=== PATIENT | female | born 1940 | race Caucasian/White ===

== ENCOUNTER 2017-12-10 10:08 | Inpatient (IN) | payer MEDICARE, OTHER ==
[~2017-12-10] VITALS: Ht 160 cm; Wt 79.4 kg
[2017-12-10 12:18] VITALS: BP 109/48
[2017-12-10] MEDS ORDERED: OXYC30TA PO (12:41)
[2017-12-10] MEDS ORDERED: INSU100I17 SQ (13:37)
[2017-12-10] MEDS ORDERED: CARI350T PO (13:37)
[2017-12-10] MEDS ORDERED: SPIR25TA PO (13:37)
[2017-12-10] MEDS ORDERED: ALPR0.25 PO (13:37)
[2017-12-10] MEDS ORDERED: AMIO200T2 PO (13:37)
[2017-12-10] MEDS ORDERED: OXYC80TA22 PO (13:37)
[2017-12-10] MEDS ORDERED: LACT1CAP21 PO (13:37)
[2017-12-10] MEDS ORDERED: DAPT500V7 IV (13:37)
[2017-12-10] MEDS ORDERED: SITA50TA PO (13:37)
[2017-12-10] MEDS ORDERED: ONDA4TAB12 PO (13:37)
[2017-12-10] MEDS ORDERED: METO25TA2 PO (13:37)
[2017-12-10] MEDS ORDERED: DIGO125T PO (13:37)
[2017-12-10] MEDS ORDERED: ASPI-612 PO (13:37)
[2017-12-10] MEDS ORDERED: LOSA25TA PO (13:37)
[2017-12-10] MEDS ORDERED: ATOR40TA PO (13:37)
[2017-12-10] MEDS ORDERED: LEVO75TA5 PO (13:37)
[2017-12-10] MEDS ORDERED: OXYC15TA PO (13:37)
[2017-12-10] MEDS ORDERED: POTA10TA10 PO ×2 (13:37)
[2017-12-10] MEDS ORDERED: IPRA3AMP NEB (13:37)
[2017-12-10] MEDS ORDERED: FURO80TA72 PO (13:37)
[2017-12-10] MEDS ORDERED: INSU100I27 SQ (13:37)
[2017-12-10] MEDS: oxyCODONE IR 5 MG TABLET PO PRN ×2 (13:53→20:37)
[2017-12-10] MEDS ORDERED: IPRATRPIUM/ALBUTEROL 0.5/2.5MG 3 ML NEBU. NEB PRN (18:45)
[2017-12-10] MEDS ORDERED: OXYCODONE HCL PO PRN (18:45)
[2017-12-10] MEDS ORDERED: ONDANSETRON ODT 4 MG TAB.RAPDIS PO PRN (18:45)
--- NOTE | 2017-12-10 19:18 | HP ---
ADMIT DATE: 12/10/2017 HISTORY OF PRESENT ILLNESS: The patient is a 77-year-old female patient with history of chronic back pain. Apparently, she rolled on her side in bed and she felt something catching and causing back pain to increase. At that time, she denied any lower extremity weakness, loss of bowel or bladder. She denied any fever or chills. Denied any significant weight change. Her lumbar spine MRI without contrast showed an area involving the L3-L4 concerning for diskitis. She apparently underwent fluoroscopically guided percutaneous disk biopsy on 12/01/2017, which grew methicillin-resistant Staphylococcus epidermidis, and she was started at that time on IV. She had a PICC line and was started on daptomycin and was basically transferred to a swing bed to continue with IV antibiotic, pain management and to start the process of physical and occupational therapy. PAST MEDICAL HISTORY: Significant for congestive heart failure secondary to ischemic cardiomyopathy, atrial fibrillation, coronary artery disease, hypertension, hyperlipidemia, chronic obstructive pulmonary disease, type 2 diabetes mellitus. PAST SURGICAL HISTORY: Significant for coronary artery bypass graft, left total hip arthroplasty, remote left nephrectomy and thumb amputation. FAMILY HISTORY: Positive for hypertension. SOCIAL HISTORY: She lives at home with her girlfriend. She smokes half-a-pack a day. Does not drink alcohol, used to be a hairdresser. ALLERGIES: She has no known drug allergies. MEDICATIONS: She is currently on following medications: She was on daptomycin ____ that was switched to Zyvox 600 mg IV twice a day. She is on DuoNeb 0.5-2.5 mg 3 mL by nebulizer 4 times a day, Soma 350 mg 4 times a day, amiodarone 200 mg daily, digoxin 125 mcg and she takes [id number]-p-zrhthe daily, atorvastatin calcium 40 mg at bedtime, metoprolol succinate 25 mg daily, losartan potassium for Cozaar 25 mg once a day, spironolactone 25 mg daily, aspirin 81 mg once a day, OxyContin 80 mg twice a day, oxycodone 15 mg immediate release 2 tablets 4 times a day. She is also on alprazolam 0.25 mg every 8 hours, potassium chloride 20 mEq daily as well as 40 mEq, furosemide 80 mg twice a day, Zofran for ondansetron ODT 4 mg every 6 hours, lactobacillus rhamnosus 1 capsule daily, sitagliptin phosphate for Januvia 50 mg once a day, NovoLog insulin 4 units subcutaneously before meals, Levemir 24 units at bedtime, levothyroxine sodium 75 mcg once a day. REVIEW OF SYSTEMS: As per history of present illness. PHYSICAL EXAMINATION GENERAL: When I saw her this afternoon, she was resting slightly propped up in bed, no apparent respiratory distress, pale, but no jaundice, cyanosis or thyromegaly. No jugular venous distention. No limb edema. VITAL SIGNS: Her heart rate was 72, blood pressure was 109/48, temperature was 97.5, respiratory rate 20, and oxygen saturation was 95% on room air. HEENT: Showed normocephalic, atraumatic. NECK: Supple. HEART: Showed normal first and second heart sounds. No gallop, rub or murmur. CHEST: Showed central trachea, equally reduced expansion, reduced air entry, vesical sounds. No crepitation or rhonchi. ABDOMEN: Slight distended, soft, nontender. No guarding or rigidity. No organomegaly. All hernial orifices intact. Bowel sounds normal. NEUROLOGIC: She is awake, alert, responding appropriately. Cranial nerves intact. She moves extremities without difficulty, although she is having severe back pain and in fact she has refused to participate with physical therapy this afternoon stating that she wanted to take it slowly. IMPRESSION: In summary, this is a 77-year-old with chronic back pain with acute component, status post L3-L4 disk biopsy on 12/01/2017, with growth of methicillin-resistant Staphylococcus epidermidis, acute on chronic back pain, chronic kidney disease, history of remote left nephrectomy, type 2 diabetes, congestive heart failure, hypertension, hypothyroidism. PLAN: Her daptomycin was switched to Zyvox 600 mg IV twice a day. Continue with pain management. Continue to monitor her lab work. Continue with physical and occupational therapy. We will obviously keep in touch with Dr. Guillermo, the infectious disease specialist, as he is following her for her infection. ROYAL SMITH MD DR: CHARLY/juan JOB#: [id number] / [id number]
[2017-12-10] MEDS: ATORVASTATIN CALCIUM 20 MG TABLET PO SCH (20:23)
[2017-12-10] MEDS: LACTOBACILLUS RHAMNOSUS GG 1 CAPSULE. PO SCH (20:23)
[2017-12-10] MEDS: oxyCODONE ER 40 MG TAB.ER.12H PO SCH (20:23)
[2017-12-10] MEDS: INSULIN DETEMIR 300 UNITS/3 ML INSULN.PEN. SQ SCH (20:33)
[2017-12-10] MEDS: CARISOPRODOL 350 MG TABLET PO PRN (23:05)
[2017-12-11] MEDS: oxyCODONE IR 5 MG TABLET PO PRN ×3 (04:59→18:28)
[2017-12-11] MEDS: LEVOTHYROXINE 75 MCG TABLET PO SCH (05:31)
[2017-12-11 06:02] VITALS: BP 133/80
[2017-12-11 06:23] LABS: BASO % 1 % (0-3); EOS # 0.1 x10^3/uL (0.0-0.7); EOS % 2 % (0-3); HEMATOCRIT 36.3 % (36.0-47.0); LYMPH # 1.1 x10^3/uL (1.0-4.8); LYMPH % 20 % (24-48); MEAN CORPUSCULAR HEMOGLOBIN 33 pg (25-35); MEAN CORPUSCULAR HGB CONC 33 g/dL (31-37); MEAN CORPUSCULAR VOLUME 98 fL (79-100); MONO # 0.5 x10^3/uL (0.0-1.1); MONO % 8 % (0-9); NEUT % 70 % (31-73); PLATELET COUNT 103 x10^3/uL (140-400); RED BLOOD COUNT 3.69 x10^6/uL (3.50-5.40); RED CELL DISTRIBUTION WIDTH 15.7 % (11.5-14.5); WHITE BLOOD COUNT 5.7 x10^3/uL (4.0-11.0)
[2017-12-11 06:56] LABS: ALBUMIN 1.5 g/dL (3.4-5.0); ALBUMIN/GLOBULIN RATIO 0.3 (1.0-1.7); CALCIUM 7.9 mg/dL (8.5-10.1); CREATININE 1.3 mg/dL (0.6-1.0); GFR 39.7; TOTAL BILIRUBIN 1.6 mg/dL (0.2-1.0); TOTAL PROTEIN 6.3 g/dL (6.4-8.2)
[2017-12-11 06:57] LABS: POTASSIUM 4.4 mmol/L (3.5-5.1)
[2017-12-11 07:28] LABS: SEDIMENTATION RATE 56 (0-25)
[2017-12-11] MEDS: INSULIN ASPART 300 UNITS/3 ML INSULN.PEN SQ SCH ×3 (07:30→17:59)
[2017-12-11] MEDS: ASPIRIN ENTERIC COATED 81 MG TABLET.DR. PO SCH (09:15)
[2017-12-11] MEDS: SPIRONOLACTONE 25 MG TABLET PO SCH (09:15)
[2017-12-11] MEDS: POTASSIUM CHLORIDE 20 MEQ TABLET.ER. PO SCH ×2 (09:15→17:53)
[2017-12-11] MEDS: LOSARTAN 25 MG TABLET. PO SCH (09:16)
[2017-12-11] MEDS: LACTOBACILLUS RHAMNOSUS GG 1 CAPSULE. PO SCH ×2 (09:16→21:03)
[2017-12-11] MEDS: AMIODARONE HCL 200 MG TABLET PO SCH (09:16)
[2017-12-11] MEDS: FUROSEMIDE 80 MG TABLET PO SCH ×2 (09:17→17:53)
[2017-12-11] MEDS: DIGOXIN 125 MCG TABLET PO SCH (09:17)
[2017-12-11] MEDS: oxyCODONE ER 40 MG TAB.ER.12H PO SCH ×2 (09:18→21:03)
[2017-12-11] MEDS: METOPROLOL SUCC 24HR ER 25 MG TAB.ER.24H. PO SCH (09:19)
[2017-12-11] MEDS: LINAGLIPTIN 5 MG TABLET PO SCH (09:19)
[2017-12-11 18:29] VITALS: BP 103/57
[2017-12-11] MEDS: ATORVASTATIN CALCIUM 20 MG TABLET PO SCH (21:03)
[2017-12-11] MEDS: INSULIN DETEMIR 300 UNITS/3 ML INSULN.PEN. SQ SCH (21:05)
[2017-12-12] MEDS: oxyCODONE IR 5 MG TABLET PO PRN ×3 (00:39→13:55)
[2017-12-12 05:48] VITALS: BP 102/56
[2017-12-12] MEDS: LEVOTHYROXINE 75 MCG TABLET PO SCH (06:41)
[2017-12-12] MEDS: POTASSIUM CHLORIDE 20 MEQ TABLET.ER. PO SCH ×2 (07:44→16:00)
[2017-12-12] MEDS: INSULIN ASPART 300 UNITS/3 ML INSULN.PEN SQ SCH ×3 (08:09→17:35)
[2017-12-12] MEDS: LOSARTAN 25 MG TABLET. PO SCH (09:00)
[2017-12-12] MEDS: SPIRONOLACTONE 25 MG TABLET PO SCH (09:16)
[2017-12-12] MEDS: ASPIRIN ENTERIC COATED 81 MG TABLET.DR. PO SCH (09:17)
[2017-12-12] MEDS: DIGOXIN 125 MCG TABLET PO SCH (09:18)
[2017-12-12] MEDS: AMIODARONE HCL 200 MG TABLET PO SCH (09:18)
[2017-12-12] MEDS: LINAGLIPTIN 5 MG TABLET PO SCH (09:19)
[2017-12-12] MEDS: LACTOBACILLUS RHAMNOSUS GG 1 CAPSULE. PO SCH ×2 (09:19→20:47)
[2017-12-12] MEDS: oxyCODONE ER 40 MG TAB.ER.12H PO SCH ×2 (09:20→20:47)
[2017-12-12] MEDS: FUROSEMIDE 80 MG TABLET PO SCH ×2 (09:20→16:00)
[2017-12-12 11:14] VITALS: BP 95/58
[2017-12-12] MEDS: METOPROLOL SUCC 24HR ER 25 MG TAB.ER.24H. PO SCH (15:54)
[2017-12-12 15:56] VITALS: BP 119/76
[2017-12-12 18:15] VITALS: BP 116/63
[2017-12-12] MEDS: ATORVASTATIN CALCIUM 20 MG TABLET PO SCH (20:47)
[2017-12-12] MEDS: INSULIN DETEMIR 300 UNITS/3 ML INSULN.PEN. SQ SCH (21:19)
[2017-12-13] MEDS: ALPRAZolam 0.25 MG TABLET PO PRN ×2 (00:42→01:27)
[2017-12-13] MEDS: oxyCODONE IR 5 MG TABLET PO PRN ×5 (00:43→21:52)
[2017-12-13 06:09] VITALS: BP 135/79
[2017-12-13 07:05] LABS: BASO % 1 % (0-3); EOS # 0.1 x10^3/uL (0.0-0.7); EOS % 2 % (0-3); HEMATOCRIT 36.9 % (36.0-47.0); HEMOGLOBIN 12.4 g/dL (12.0-15.5); LYMPH # 1.4 x10^3/uL (1.0-4.8); LYMPH % 21 % (24-48); MEAN CORPUSCULAR HEMOGLOBIN 33 pg (25-35); MEAN CORPUSCULAR HGB CONC 34 g/dL (31-37); MEAN CORPUSCULAR VOLUME 98 fL (79-100); MONO # 0.5 x10^3/uL (0.0-1.1); MONO % 8 % (0-9); NEUT # 4.4 x10^3uL (1.8-7.7); NEUT % 68 % (31-73); PLATELET COUNT 102 x10^3/uL (140-400); RED BLOOD COUNT 3.79 x10^6/uL (3.50-5.40); RED CELL DISTRIBUTION WIDTH 16.1 % (11.5-14.5); WHITE BLOOD COUNT 6.5 x10^3/uL (4.0-11.0)
[2017-12-13] MEDS: INSULIN ASPART 300 UNITS/3 ML INSULN.PEN SQ SCH ×3 (07:30→16:30)
[2017-12-13] MEDS: LEVOTHYROXINE 75 MCG TABLET PO SCH (08:11)
[2017-12-13] MEDS: POTASSIUM CHLORIDE 20 MEQ TABLET.ER. PO SCH ×2 (08:11→17:54)
[2017-12-13] MEDS: ASPIRIN ENTERIC COATED 81 MG TABLET.DR. PO SCH (09:32)
[2017-12-13] MEDS: SPIRONOLACTONE 25 MG TABLET PO SCH (09:32)
[2017-12-13] MEDS: LACTOBACILLUS RHAMNOSUS GG 1 CAPSULE. PO SCH ×2 (09:34→20:40)
[2017-12-13] MEDS: AMIODARONE HCL 200 MG TABLET PO SCH (09:34)
[2017-12-13] MEDS: LOSARTAN 25 MG TABLET. PO SCH (09:34)
[2017-12-13] MEDS: FUROSEMIDE 80 MG TABLET PO SCH ×2 (09:36→17:54)
[2017-12-13] MEDS: DIGOXIN 125 MCG TABLET PO SCH (09:36)
[2017-12-13] MEDS: oxyCODONE ER 40 MG TAB.ER.12H PO SCH ×2 (09:37→20:40)
[2017-12-13] MEDS: LINAGLIPTIN 5 MG TABLET PO SCH (09:38)
[2017-12-13] MEDS: METOPROLOL SUCC 24HR ER 25 MG TAB.ER.24H. PO SCH (09:38)
[2017-12-13] MEDS ORDERED: fentaNYL 12MCG/HR 1 PATCH PATCH TD SCH (17:15)
[2017-12-13 19:04] VITALS: BP 105/72
[2017-12-13] MEDS: ATORVASTATIN CALCIUM 20 MG TABLET PO SCH (20:41)
[2017-12-13] MEDS: INSULIN DETEMIR 300 UNITS/3 ML INSULN.PEN. SQ SCH (20:52)
[2017-12-14] VITALS (8 sets, daily range): BP systolic 82–118; BP diastolic 44–70
[2017-12-14] MEDS: ALPRAZolam 0.25 MG TABLET PO PRN ×2 (01:31→11:49)
[2017-12-14] MEDS: LEVOTHYROXINE 75 MCG TABLET PO SCH ×2 (06:06→08:42)
[2017-12-14] MEDS: oxyCODONE IR 5 MG TABLET PO PRN ×2 (06:07→17:07)
[2017-12-14] MEDS: INSULIN ASPART 300 UNITS/3 ML INSULN.PEN SQ SCH ×3 (07:55→16:30)
[2017-12-14] MEDS: POTASSIUM CHLORIDE 20 MEQ TABLET.ER. PO SCH ×3 (08:39→16:39)
[2017-12-14] MEDS: ASPIRIN ENTERIC COATED 81 MG TABLET.DR. PO SCH (08:39)
[2017-12-14] MEDS: LACTOBACILLUS RHAMNOSUS GG 1 CAPSULE. PO SCH ×2 (08:40→20:34)
[2017-12-14] MEDS: FUROSEMIDE 80 MG TABLET PO SCH ×2 (08:40→16:00)
[2017-12-14] MEDS: SPIRONOLACTONE 25 MG TABLET PO SCH (08:40)
[2017-12-14] MEDS: AMIODARONE HCL 200 MG TABLET PO SCH (08:40)
[2017-12-14] MEDS: DIGOXIN 125 MCG TABLET PO SCH (08:42)
[2017-12-14] MEDS: LOSARTAN 25 MG TABLET. PO SCH (08:43)
[2017-12-14] MEDS: oxyCODONE ER 40 MG TAB.ER.12H PO SCH ×2 (08:43→20:35)
[2017-12-14] MEDS: LINAGLIPTIN 5 MG TABLET PO SCH (08:45)
[2017-12-14] MEDS: METOPROLOL SUCC 24HR ER 25 MG TAB.ER.24H. PO SCH (09:00)
[2017-12-14] MEDS ORDERED: IV NORMAL SALINE 500ML 500 ML IV ONE (15:30)
[2017-12-14] MEDS ORDERED: LIDOCAINE (700MG/PATCH) PATCH. TD SCH (17:15)
[2017-12-14] MEDS: ATORVASTATIN CALCIUM 20 MG TABLET PO SCH (20:34)
[2017-12-14] MEDS: INSULIN DETEMIR 300 UNITS/3 ML INSULN.PEN. SQ SCH (21:16)
--- NOTE | 2017-12-14 23:06 | PN ---
DATE: 12/14/2017 SUBJECTIVE: The patient continued to complain of severe intractable pain and we decided yesterday to add fentanyl patch at a smaller dose of 12 mcg as she is on Zyvox with interaction after discussion with the pharmacist and unfortunately this morning, the patient's blood pressure dropped down to around 80 systolic, and therefore, a decision was made to discontinue the fentanyl patch. When I saw her this afternoon, she was resting slightly propped up in her recliner in no apparent distress. She was actually sleepy, but arousable, continued to complain of back pain that is worse by movement. She apparently was managed to walk few feet today. PHYSICAL EXAMINATION: GENERAL: When I examined her, she was pale, not jaundiced, cyanosis or thyromegaly. No jugular venous distension. No lower limb edema. VITAL SIGNS: Her heart rate was 75, blood pressure was 103/48, temperature was 97.5, respiratory rate was 18, and oxygen saturation was 100% on 2 liters of oxygen by nasal cannula. HEAD, EYES, EARS, NOSE AND THROAT: Showed normocephalic, atraumatic. NECK: Supple. HEART: Showed normal first and second heart sounds with no gallop, rub or murmur. CHEST: Clear to auscultation. No crepitation or rhonchi. ABDOMEN: Distended, soft, nontender. No guarding or rigidity. No organomegaly. Hernial orifice intact. Bowel sounds normal. NEUROLOGIC: She was sleepy but arousable. Cranial nerves intact. She moves extremities without difficulty, although she continued to have severe pain that is preventing her from able to walk. Her intake over the last 24 hours was 1618. No output was recorded. LABORATORY DATA: As of yesterday, which showed a white cell count of 6500, hemoglobin 12.4, hematocrit 36.9, MCV was 98 and platelet count 202,000. Her chemistry showed that her serum sodium was 139, potassium 4.4, chloride 109, bicarbonate 24, anion gap of 6, BUN 28, creatinine 1.3, estimated GFR was 40 mL per minute. Her glucose was 122. Her calcium was 7.9. Total bilirubin, AST, ALT, alkaline phosphatase were all elevated. Total protein was 6.3, albumin 1.5, and TSH was 2.25. ASSESSMENT: Intractable low back pain. Apparently fentanyl patch was not helpful and that caused severe marked hypotension and therefore we have discontinued that. She has also impaired liver enzymes. My plan is to start her on a Lidoderm patch and basically schedule them in the morning before the physical therapy. 1. Other issues, obviously she has L3-L4 diskitis for which she is on IV antibiotic in the form of Zyvox for methicillin resistant Staphylococcus epidermidis. 2. Acute on chronic back pain. 3. Chronic kidney disease. 4. History of remote left nephrectomy. 5. Type 2 diabetes mellitus. 6. Congestive heart failure. 7. Hypertension. 8. Hypothyroidism. 9. Impaired kidney function. PLAN: My plan is to repeat her labs tomorrow and decide further management accordingly. ROYAL SMITH MD DR: CHARLY/juan JOB#: [id number] / [id number]
[2017-12-15] MEDS: oxyCODONE IR 5 MG TABLET PO PRN ×4 (01:01→21:08)
[2017-12-15 01:02] VITALS: BP 103/67
[2017-12-15 05:50] VITALS: BP 91/59
[2017-12-15 06:21] LABS: ALBUMIN 1.4 g/dL (3.4-5.0); ALBUMIN/GLOBULIN RATIO 0.3 (1.0-1.7); CALCIUM 7.4 mg/dL (8.5-10.1); CREATININE 1.8 mg/dL (0.6-1.0); GFR 27.3; POTASSIUM 5.1 mmol/L (3.5-5.1); TOTAL BILIRUBIN 0.7 mg/dL (0.2-1.0)
[2017-12-15 06:23] VITALS: BP 128/77
[2017-12-15] MEDS: INSULIN ASPART 300 UNITS/3 ML INSULN.PEN SQ SCH ×3 (07:30→16:30)
[2017-12-15] MEDS: oxyCODONE ER 40 MG TAB.ER.12H PO SCH ×2 (08:01→20:13)
[2017-12-15] MEDS: SPIRONOLACTONE 25 MG TABLET PO SCH (08:02)
[2017-12-15] MEDS: FUROSEMIDE 80 MG TABLET PO SCH ×3 (08:02→15:59)
[2017-12-15] MEDS: LACTOBACILLUS RHAMNOSUS GG 1 CAPSULE. PO SCH ×2 (08:02→20:12)
[2017-12-15] MEDS: ASPIRIN ENTERIC COATED 81 MG TABLET.DR. PO SCH (08:02)
[2017-12-15] MEDS: LINAGLIPTIN 5 MG TABLET PO SCH (08:02)
[2017-12-15] MEDS: METOPROLOL SUCC 24HR ER 25 MG TAB.ER.24H. PO SCH (08:03)
[2017-12-15] MEDS: DIGOXIN 125 MCG TABLET PO SCH (08:03)
[2017-12-15] MEDS: LEVOTHYROXINE 75 MCG TABLET PO SCH (08:03)
[2017-12-15] MEDS: AMIODARONE HCL 200 MG TABLET PO SCH (08:04)
[2017-12-15] MEDS: LOSARTAN 25 MG TABLET. PO SCH (08:04)
[2017-12-15] MEDS: LIDOCAINE (700MG/PATCH) PATCH. TD SCH (08:05)
[2017-12-15] MEDS: POTASSIUM CHLORIDE 20 MEQ TABLET.ER. PO SCH ×2 (13:06→15:58)
[2017-12-15] MEDS: CARISOPRODOL 350 MG TABLET PO PRN (13:06)
[2017-12-15 18:16] VITALS: BP 113/67
[2017-12-15] MEDS: ATORVASTATIN CALCIUM 20 MG TABLET PO SCH (20:12)
[2017-12-15] MEDS: INSULIN DETEMIR 300 UNITS/3 ML INSULN.PEN. SQ SCH (20:19)
[2017-12-15 21:37] VITALS: BP 102/60
--- NOTE | 2017-12-15 23:06 | PN ---
DATE: 12/15/2017 SUBJECTIVE: The patient is resting slightly propped up in bed, in no apparent distress, continued to complain of severe back pain, has not really progressed well with her rehabilitation. Her kidney function has also been worsening. Her liver enzymes were also elevated, so I did repeat her lab work yesterday. On questioning her, she stated that her pain is much worse than it was before and has been fairly well controlled. OBJECTIVE: GENERAL: On examining her, she looked pale, but no jaundice or cyanosis. No lymphadenopathy, no thyromegaly. No jugular venous distension. No lower limb edema. VITAL SIGNS: Her heart rate was 76, blood pressure was 128/77, temperature was 97.6, respiratory rate was 16 and oxygen saturation was 98% on room air. HEAD, EYES, EARS, NOSE AND THROAT: Showed normocephalic, atraumatic. NECK: Supple. HEART: Showed normal first and second heart sounds with no gallop, rub or murmur. CHEST: Clear to auscultation. No crepitation or rhonchi. ABDOMEN: Distended, soft, nontender. No guarding or rigidity. No organomegaly. Hernial orifice intact. Bowel sounds normal. NEUROLOGIC: She is awake, alert, responding appropriately. Cranial nerves intact. She moves extremities without difficulty, although she is mostly bedbound. Her intake over the last 24 hours was 2600, output was only 300. LABORATORY DATA: As of this morning showed serum sodium was 137, potassium 5.1, chloride 104, bicarbonate 28, anion gap of 5, BUN 38, creatinine 1.8. Estimated GFR was 27 mL per minute. Her glucose of 178. Calcium was 7.4. Total bilirubin is normal; however, AST, ALT, alkaline phosphatase are elevated, although liver enzymes are trending down as her bilirubin was high and the AST, ALT, alkaline phosphatase were higher on 12/11/2017. Her TSH was 2.25. Her total protein was 6, albumin was 1.4 and ammonia was 36. Her prothrombin time was 15.5, INR 1.3. Her white cell count was 6500, hemoglobin 12, hematocrit 36, MCV 98 and platelet count of 102,000. IMPRESSION: 1. In summary, severe intractable low back pain despite being on 80 mg of OxyContin twice a day and oxycodone 30 mg every 6 hours. The patient ____ not making any progress in her rehabilitation. 2. Impaired liver enzymes. In fact, they are slightly better compared to their values on 12/11/2017. 3. L3-L4 diskitis, which she is on IV antibiotic in the form of Zyvox for methicillin-resistant Staphylococcus epidermidis. 4. Ctlrp-hc-zentnkv back pain. 5. Chronic kidney disease and the patient has acute on chronic. Creatinine has risen from 0.3-1.8. 6. History of remote left nephrectomy. 7. Type 2 diabetes mellitus. 8. Congestive heart failure. 9. Hypertension. 10. Hypothyroidism. 11. Chronic kidney disease. PLAN: My plan is to hold her Lasix. We will increase her OxyContin to 30 mg every 4 hours. We will arrange for her to have a CT scan of the lumbar spine without contrast and decide on further management accordingly. ROYAL SMITH MD DR: CHARLY/juan JOB#: [id number] / [id number]
[2017-12-16] MEDS: oxyCODONE IR 5 MG TABLET PO PRN ×5 (01:40→21:40)
[2017-12-16 05:12] LABS: BASO # 0.1 x10^3/uL (0.0-0.2); BASO % 1 % (0-3); EOS # 0.2 x10^3/uL (0.0-0.7); EOS % 3 % (0-3); HEMATOCRIT 32.6 % (36.0-47.0); HEMOGLOBIN 10.9 g/dL (12.0-15.5); LYMPH # 1.3 x10^3/uL (1.0-4.8); LYMPH % 22 % (24-48); MEAN CORPUSCULAR HEMOGLOBIN 33 pg (25-35); MEAN CORPUSCULAR HGB CONC 34 g/dL (31-37); MEAN CORPUSCULAR VOLUME 98 fL (79-100); MONO # 0.5 x10^3/uL (0.0-1.1); MONO % 8 % (0-9); NEUT # 3.8 x10^3uL (1.8-7.7); NEUT % 66 % (31-73); PLATELET COUNT 77 x10^3/uL (140-400); RED BLOOD COUNT 3.31 x10^6/uL (3.50-5.40); WHITE BLOOD COUNT 5.8 x10^3/uL (4.0-11.0)
[2017-12-16 05:20] LABS: CALCIUM 7.5 mg/dL (8.5-10.1); CREATININE 1.8 mg/dL (0.6-1.0); GFR 27.3; POTASSIUM 4.8 mmol/L (3.5-5.1)
[2017-12-16 06:01] VITALS: BP 105/71
[2017-12-16] MEDS: INSULIN ASPART 300 UNITS/3 ML INSULN.PEN SQ SCH ×3 (07:30→16:30)
[2017-12-16] MEDS: LIDOCAINE (700MG/PATCH) PATCH. TD SCH (09:00)
[2017-12-16] MEDS ORDERED: fentaNYL 25MCG/HR 1 PATCH PATCH TD SCH (09:00)
[2017-12-16] MEDS: SPIRONOLACTONE 25 MG TABLET PO SCH (09:02)
[2017-12-16] MEDS: ASPIRIN ENTERIC COATED 81 MG TABLET.DR. PO SCH (09:02)
[2017-12-16] MEDS: AMIODARONE HCL 200 MG TABLET PO SCH (09:03)
[2017-12-16] MEDS: LOSARTAN 25 MG TABLET. PO SCH (09:03)
[2017-12-16] MEDS: LACTOBACILLUS RHAMNOSUS GG 1 CAPSULE. PO SCH ×2 (09:03→19:55)
[2017-12-16] MEDS: DIGOXIN 125 MCG TABLET PO SCH (09:04)
[2017-12-16] MEDS: oxyCODONE ER 40 MG TAB.ER.12H PO SCH ×2 (09:05→19:56)
[2017-12-16] MEDS: METOPROLOL SUCC 24HR ER 25 MG TAB.ER.24H. PO SCH (09:05)
[2017-12-16] MEDS: LINAGLIPTIN 5 MG TABLET PO SCH (09:05)
--- NOTE | 2017-12-16 11:31 | RAD ---
CT study of the thoracic and lumbar spine without contrast Clinical indications: Worsening back pain. TECHNIQUE: Noncontrast helical CT scanning of the thoracic and lumbar spine was performed. Multiplanar 2-D reconstructions were generated. PQRS compliance Statement One or more of the following individualized dose reduction techniques were utilized for this study: 1. Automated exposure control 2. Adjustment of the mA and/or kV according to patient size 3. Use of iterative reconstruction technique COMPARISON: Lumbar spine MRI study dated November 29, 2017. CT STUDY OF THE THORACIC SPINE: No compression fracture or discitis or osteolytic process is seen. No significant spinal canal stenosis or prominent focal disc protrusion is evident on this study. Small bilateral pleural effusions are seen right greater than left. IMPRESSION: No acute compression fracture of the thoracic spine. There is abnormal dilatation of the extra hepatic biliary tree down into the head of the pancreas. Distal common bile duct obstruction is possible. This may be further evaluated with MRCP. CT STUDY OF THE LUMBAR SPINE: The transverse processes are intact. There are moderate compression fractures of L2 and L3 and L4 which were seen on the previous lumbar spine MRI study. There are unchanged. Edema was present within the L3 and L4 vertebral bodies consistent with recent compression fractures. L2 compression fracture is old. There is sclerosis of the endplates around the L3-4 disc space along with prominent Schmorl's nodes versus erosions of the endplates. Differential considerations are discitis versus severe degenerative disc space and endplate disease. MRI study indicated possible discitis with increased signal within the disc space. Bilateral sacral insufficiency fractures are evident as well with sclerosis. No diastases of either SI joint is seen. No osteolytic process is evident. There is spinal canal stenosis at L2-3 (mild) and L3-4 (severe) and L4-5 (severe) and L5-S1 (moderate). Multilevel neural foraminal narrowing is seen. No spondylolysis or anterolisthesis is evident. IMPRESSION: Stable compression fractures of L2 and L3 and L4 which based on MRI study dated November 29, 2017 are recent at L3 and L4. Bilateral sacral insufficiency fractures. Possible discitis and osteomyelitis at L3-4 versus severe degenerative endplate and disc space disease. Multilevel spinal canal stenosis or neural foraminal narrowing. Electronically signed by: Damaso Salazar MD (12/16/2017 11:28 AM) [facility]
[2017-12-16] MEDS: CARISOPRODOL 350 MG TABLET PO PRN (12:35)
[2017-12-16] MEDS ORDERED: DOCUSATE SODIUM 100 MG CAPSULE PO PRN (16:00)
[2017-12-16] MEDS ORDERED: MAG HYDROX/AL HYDROX/SIMETH 30 ML ORAL.SUSP PO PRN (16:00)
[2017-12-16 18:06] VITALS: BP 106/60
[2017-12-16] MEDS: ATORVASTATIN CALCIUM 20 MG TABLET PO SCH (19:56)
[2017-12-16] MEDS: INSULIN DETEMIR 300 UNITS/3 ML INSULN.PEN. SQ SCH (20:11)
[2017-12-16 21:03] VITALS: BP 96/47
[2017-12-16 21:39] VITALS: BP 113/57
[2017-12-17 02:03] VITALS: BP 103/64
[2017-12-17] MEDS: CARISOPRODOL 350 MG TABLET PO PRN (02:38)
[2017-12-17 06:00] VITALS: BP 97/48
[2017-12-17] MEDS: INSULIN ASPART 300 UNITS/3 ML INSULN.PEN SQ SCH ×3 (07:30→16:30)
[2017-12-17] MEDS: PANTOPRAZOLE 40 MG TABLET. PO SCH (07:40)
[2017-12-17] MEDS: LEVOTHYROXINE 75 MCG TABLET PO SCH (07:40)
[2017-12-17] MEDS: oxyCODONE ER 40 MG TAB.ER.12H PO SCH ×3 (08:33→21:14)
[2017-12-17] MEDS: DIGOXIN 125 MCG TABLET PO SCH (08:33)
[2017-12-17] MEDS: SPIRONOLACTONE 25 MG TABLET PO SCH (08:33)
[2017-12-17] MEDS: LINAGLIPTIN 5 MG TABLET PO SCH (08:34)
[2017-12-17] MEDS: LACTOBACILLUS RHAMNOSUS GG 1 CAPSULE. PO SCH ×2 (08:34→21:14)
[2017-12-17] MEDS: ASPIRIN ENTERIC COATED 81 MG TABLET.DR. PO SCH (08:34)
[2017-12-17] MEDS: METOPROLOL SUCC 24HR ER 25 MG TAB.ER.24H. PO SCH (09:00)
[2017-12-17] MEDS: AMIODARONE HCL 200 MG TABLET PO SCH (09:00)
[2017-12-17] MEDS: LIDOCAINE (700MG/PATCH) PATCH. TD SCH (09:00)
[2017-12-17] MEDS: POLYETHYLENE GLYCOL 3350 17 GM PACKET. PO SCH (09:00)
[2017-12-17] MEDS: LOSARTAN 25 MG TABLET. PO SCH (09:00)
[2017-12-17] MEDS: oxyCODONE IR 5 MG TABLET PO PRN ×3 (09:57→23:38)
[2017-12-17] MEDS ORDERED: CALCIUM CARBONATE 500 MG TAB.CHEW PO PRN (16:45)
[2017-12-17 18:11] VITALS: BP 107/76
[2017-12-17] MEDS: INSULIN DETEMIR 300 UNITS/3 ML INSULN.PEN. SQ SCH (21:00)
[2017-12-17] MEDS: ATORVASTATIN CALCIUM 20 MG TABLET PO SCH (21:14)
[2017-12-17] MEDS: DOCUSATE SODIUM 100 MG CAPSULE PO SCH (21:15)
[2017-12-17 21:38] VITALS: BP 113/62
[2017-12-17 23:05] VITALS: BP 109/71
--- NOTE | 2017-12-18 01:10 | PN ---
DATE: 12/17/2017 NO DICTATION. ROYAL SMITH MD DR: CHARLY/juan JOB#: [id number] / [id number]
--- NOTE | 2017-12-18 02:55 | PN ---
DATE: 12/17/2017 SUBJECTIVE: The patient was sitting comfortably, eating her lunch, in no apparent distress. She continued to complain of severe pain. Had a lengthy discussion with her yesterday and I spoke with ____ this morning and he stated that given that has any infection, kyphoplasty is completely contraindicated. Neither he nor the neurosurgeon can offer any surgical intervention that alleviates her pain and we explained to her that the only other option is to increase her OxyContin to 80 mg 3 times a day and try it over the weekend. She has tried other modalities including Lidoderm, heating bags and they were not do any much help to her. So the plan is to try this over the weekend and if nothing has helped, we will plan to transfer her to [facility] to consult the paint supervisor to assist with her pain management. She cannot be on any IV pain medication and she is here for rehabilitation. PHYSICAL EXAMINATION: GENERAL: When I saw her today, she looked well and was clearly in no apparent respiratory distress, pale. No jaundice, cyanosis or thyromegaly. No jugular venous distention. No lower limb edema. VITAL SIGNS: Her heart rate was 82, blood pressure was 102/66, temperature was 97.5, respiratory rate was 16 and oxygen saturation was 99% on 2.5 liters of oxygen. HEAD, EYES, EARS, NOSE, AND THROAT: Showed normocephalic, atraumatic. NECK: Supple. HEART: Showed normal first and second heart sounds with no gallop, rub or murmur. CHEST: Clear to auscultation. No crepitation or rhonchi. ABDOMEN: Distended, soft, nontender. NEUROLOGIC: She is awake, alert, responding appropriately. Cranial nerves intact. She moves extremities without difficulty; however, she is mostly bed bound. Her intake and output were incompletely recorded. LABORATORY DATA: Her white cell count was 5800, hemoglobin 11, hematocrit 33, MCV 98, and platelet count of 77,000. Her chemistry showed her serum sodium to be 165, potassium 4.8, chloride 104, bicarbonate 27, anion gap of 4, BUN 43, creatinine 1.8, estimated GFR was 27 mL per minute. Her glucose 99, calcium was 7.5. ASSESSMENT: 1. Severe intractable low back pain despite being on 80 mg of OxyContin twice a day and oxycodone 15 mg every 4 hours. 2. Impaired liver enzymes and that are slightly better. 3. L3-L4 diskitis, for which she is on IV antibiotic in the form of Zyvox for methicillin-resistant Staphylococcus epidermidis. She was on daptomycin that was switched recently to Zyvox. 4. Acute on chronic back pain. 5. Chronic kidney disease with acute component. Creatinine has risen from 1.3-1.8. 6. History of remote left nephrectomy. 7. Type 2 diabetes mellitus. 8. Congestive heart failure. 9. Hypertension. 10. Hypothyroidism. 11. Chronic kidney disease. PLAN: My plan is to increase her OxyContin to 80 mg 3 times a day and we will try this coming weekend and if no improvement, she will be transferred to [facility]. ROYAL SMITH MD DR: CHARLY/juan JOB#: [id number] / [id number]
[2017-12-18 03:24] VITALS: BP 128/69
[2017-12-18] MEDS: CARISOPRODOL 350 MG TABLET PO PRN (04:55)
[2017-12-18 05:36] LABS: HEMATOCRIT 32.9 % (36.0-47.0); HEMOGLOBIN 11.1 g/dL (12.0-15.5); RED BLOOD COUNT 3.35 x10^6/uL (3.50-5.40); WHITE BLOOD COUNT 5.4 x10^3/uL (4.0-11.0)
[2017-12-18 06:05] VITALS: BP 127/93
[2017-12-18] MEDS: oxyCODONE IR 5 MG TABLET PO PRN (06:45)
[2017-12-18] MEDS: LEVOTHYROXINE 75 MCG TABLET PO SCH (06:45)
[2017-12-18 07:23] LABS: ALBUMIN 1.5 g/dL (3.4-5.0); ALBUMIN/GLOBULIN RATIO 0.3 (1.0-1.7); CALCIUM 7.9 mg/dL (8.5-10.1); CREATININE 1.8 mg/dL (0.6-1.0); GFR 27.3; TOTAL BILIRUBIN 0.9 mg/dL (0.2-1.0); TOTAL PROTEIN 6.1 g/dL (6.4-8.2)
[2017-12-18] MEDS: ASPIRIN ENTERIC COATED 81 MG TABLET.DR. PO SCH (08:35)
[2017-12-18] MEDS: SPIRONOLACTONE 25 MG TABLET PO SCH (08:35)
[2017-12-18] MEDS: DOCUSATE SODIUM 100 MG CAPSULE PO SCH (08:35)
[2017-12-18] MEDS: DIGOXIN 125 MCG TABLET PO SCH (08:36)
[2017-12-18] MEDS: LACTOBACILLUS RHAMNOSUS GG 1 CAPSULE. PO SCH (08:37)
[2017-12-18] MEDS: LOSARTAN 25 MG TABLET. PO SCH (08:37)
[2017-12-18] MEDS: oxyCODONE ER 40 MG TAB.ER.12H PO SCH ×2 (08:37→14:59)
[2017-12-18] MEDS: AMIODARONE HCL 200 MG TABLET PO SCH (08:37)
[2017-12-18] MEDS: LINAGLIPTIN 5 MG TABLET PO SCH (08:37)
[2017-12-18] MEDS: PANTOPRAZOLE 40 MG TABLET. PO SCH (08:39)
[2017-12-18] MEDS: POLYETHYLENE GLYCOL 3350 17 GM PACKET. PO SCH (08:40)
[2017-12-18 08:56] VITALS: BP 127/93
[2017-12-18] MEDS: LIDOCAINE (700MG/PATCH) PATCH. TD SCH (08:56)
[2017-12-18] MEDS: METOPROLOL SUCC 24HR ER 25 MG TAB.ER.24H. PO SCH (08:56)
[2017-12-18] MEDS: INSULIN ASPART 300 UNITS/3 ML INSULN.PEN SQ SCH ×2 (08:56→12:02)
[2017-12-18] MEDS ORDERED: FUROSEMIDE 80 MG TABLET PO SCH ×2 (15:00→21:00)
[2017-12-19] MEDS ORDERED: FUROSEMIDE 80 MG TABLET PO SCH (09:00)
--- NOTE | 2017-12-19 10:16 | RAD ---
EXAM: Chest one view. HISTORY: Cough, shortness of breath. COMPARISON: None. FINDINGS: A frontal view of the chest is obtained. There are changes of coronary artery bypass grafting. A right arm PICC line has its tip in the superior cavoatrial junction. There are surgical clips in the left upper quadrant. A small right pleural effusion is suspected. There is mild atelectasis in the left base. There is no pneumothorax. The heart is mildly enlarged. There are atherosclerotic calcifications of the aorta. IMPRESSION: 1. Mild cardiomegaly. Small right pleural effusion.
--- NOTE | 2017-12-19 12:34 | PN ---
DATE: 12/18/2017 SUBJECTIVE: The patient is resting, slightly propped up in bed, in no apparent distress. Her pain is much better controlled now that she is on 80 mg of OxyContin 2 times a day; however, she continued to refuse to work with physical therapy. Her family came yesterday insisting that we should start her back on her ; however, the patient refused. Dr. Patricio Holden said that she was in the . Apparently, her ejection fraction improved to 55%. Cardiology team at [facility] discontinued the Primacor. We attempted to restart it yesterday, but the patient has refused. Her creatinine has risen, so I discontinued her Lasix and her platelet count steadily dropping down, in fact from 103 down to 66 today. My plan is to order another echocardiogram to evaluate her left ventricular systolic function. We will resume her furosemide 80 mg twice a day and will consult with the Infectious Disease regarding her thrombocytopenia, given that Zyvox is the most likely culprit of the thrombocytopenia. ROYAL SMITH MD DR: CHARLY/juan JOB#: [id number] / [id number]
== END 2017-12-18 16:06 | disposition swing bed (61) | DRG 552 ==
LOC: LND 11:44 → ICU 12-18 15:40 → LND 12-18 15:40 → UNDODISIN 12-18 16:06
PROVIDERS: ADMIT Internal Medicine; ATTEND Internal Medicine
DX: M46.46 Discitis, unspecified, lumbar region (principal); D69.6 Thrombocytopenia, unspecified; E11.22 Type 2 diabetes mellitus with diabetic chronic kidney disease; I13.0 Hypertensive heart and chronic kidney disease with heart failure and stage 1 through stage 4 chronic kidney disease, or unspecified chronic kidney disease; I48.91 Unspecified atrial fibrillation; I95.9 Hypotension, unspecified; I50.9 Heart failure, unspecified; B95.62 Methicillin resistant Staphylococcus aureus infection as the cause of diseases classified elsewhere; E03.9 Hypothyroidism, unspecified; E78.5 Hyperlipidemia, unspecified; F17.210 Nicotine dependence, cigarettes, uncomplicated; R74.8 Abnormal levels of other serum enzymes; G89.29 Other chronic pain; I25.10 Atherosclerotic heart disease of native coronary artery without angina pectoris; I25.5 Ischemic cardiomyopathy; J44.9 Chronic obstructive pulmonary disease, unspecified; Z96.642 Presence of left artificial hip joint; Z66 Do not resuscitate; N18.9 Chronic kidney disease, unspecified; Z82.49 Family history of ischemic heart disease and other diseases of the circulatory system; Z90.5 Acquired absence of kidney; Z95.1 Presence of aortocoronary bypass graft; Z89.019 Acquired absence of unspecified thumb
CPT/HCPCS: 36415; 71045; 72128; 72131; 80048; 80053; 82140; 82947; 84443; 85025; 85027; 85610; 85651; J1815; J2020; J7040; 97110; 97116; 97530; 97535

== ENCOUNTER 2017-12-18 16:06 | Inpatient (IN) | payer MEDICARE, OTHER ==
[~2017-12-18] VITALS: Ht 160 cm; Wt 82.6 kg
[~2017-12-18 16:06] MED LIST: ALPR0.25 PO; AMIO200T2 PO; ASPI-612 PO; ATOR40TA PO; CARI350T PO; DAPT500V7 IV; DIGO125T PO; FURO80TA72 PO; INSU100I17 SQ; INSU100I27 SQ; IPRA3AMP NEB; LACT1CAP21 PO; LEVO75TA5 PO; LOSA25TA PO; METO25TA2 PO; ONDA4TAB12 PO; OXYC15TA PO; OXYC30TA PO; OXYC80TA22 PO; POTA10TA10 PO; POTASSIUM CHLORIDE 20 MEQ TABLET.ER. PO SCH; SITA50TA PO; SPIR25TA PO
[2017-12-18] MEDS ORDERED: ALPRAZolam 0.25 MG TABLET PO PRN (17:00)
[2017-12-18] MEDS ORDERED: MILRINONE 20MG/100ML PREMIX 100 ML IV PRN (17:00)
[2017-12-18] MEDS ORDERED: ONDANSETRON ODT 4 MG TAB.RAPDIS PO PRN (17:00)
[2017-12-18] MEDS ORDERED: IPRATRPIUM/ALBUTEROL 0.5/2.5MG 3 ML NEBU. NEB PRN (17:00)
[2017-12-18] MEDS ORDERED: DOCUSATE SODIUM 100 MG CAPSULE PO PRN (17:00)
[2017-12-18 17:28] VITALS: BP 90/65
[2017-12-18] MEDS ORDERED: CALCIUM CARBONATE 500 MG TAB.CHEW PO PRN (17:30)
[2017-12-18] MEDS ORDERED: MAG HYDROX/AL HYDROX/SIMETH 30 ML ORAL.SUSP PO PRN (17:30)
[2017-12-18] MEDS: oxyCODONE IR 5 MG TABLET PO PRN ×2 (17:59→22:31)
[2017-12-18 19:22] VITALS: BP 117/55
[2017-12-18 20:37] VITALS: BP 126/53
[2017-12-18] MEDS: INSULIN DETEMIR 300 UNITS/3 ML INSULN.PEN. SQ SCH (21:00)
[2017-12-18] MEDS: LACTOBACILLUS RHAMNOSUS GG 1 CAPSULE. PO SCH (21:16)
[2017-12-18] MEDS: ATORVASTATIN CALCIUM 20 MG TABLET PO SCH (21:16)
[2017-12-18] MEDS: oxyCODONE ER 40 MG TAB.ER.12H PO SCH (21:16)
[2017-12-18 21:37] VITALS: BP 111/52
[2017-12-18 22:37] VITALS: BP 114/61
[2017-12-18 23:36] VITALS: BP 101/48
[2017-12-19] VITALS (19 sets, daily range): BP systolic 77–135; BP diastolic 38–77
[2017-12-19] MEDS: oxyCODONE IR 5 MG TABLET PO PRN ×3 (02:30→10:32)
[2017-12-19 05:41] LABS: ALBUMIN 1.5 g/dL (3.4-5.0); ALBUMIN/GLOBULIN RATIO 0.3 (1.0-1.7); BASO % 1 % (0-3); CREATININE 1.7 mg/dL (0.6-1.0); EOS # 0.2 x10^3/uL (0.0-0.7); EOS % 3 % (0-3); GFR 29.1; HEMATOCRIT 33.3 % (36.0-47.0); LYMPH # 1.3 x10^3/uL (1.0-4.8); LYMPH % 20 % (24-48); MEAN CORPUSCULAR HEMOGLOBIN 33 pg (25-35); MEAN CORPUSCULAR HGB CONC 33 g/dL (31-37); MEAN CORPUSCULAR VOLUME 100 fL (79-100); MONO # 0.4 x10^3/uL (0.0-1.1); MONO % 5 % (0-9); NEUT # 4.7 x10^3uL (1.8-7.7); NEUT % 71 % (31-73); PLATELET COUNT 68 x10^3/uL (140-400); RED BLOOD COUNT 3.33 x10^6/uL (3.50-5.40); RED CELL DISTRIBUTION WIDTH 16.1 % (11.5-14.5); TOTAL BILIRUBIN 0.9 mg/dL (0.2-1.0); TOTAL PROTEIN 6.3 g/dL (6.4-8.2); WHITE BLOOD COUNT 6.6 x10^3/uL (4.0-11.0)
[2017-12-19 05:42] LABS: POTASSIUM 5.3 mmol/L (3.5-5.1)
[2017-12-19] MEDS: LEVOTHYROXINE 75 MCG TABLET PO SCH (06:26)
[2017-12-19] MEDS: PANTOPRAZOLE 40 MG TABLET. PO SCH (07:54)
[2017-12-19] MEDS ORDERED: POTASSIUM CHLORIDE 20 MEQ TABLET.ER. PO SCH (08:00)
[2017-12-19] MEDS: INSULIN ASPART 300 UNITS/3 ML INSULN.PEN SQ SCH ×3 (08:22→17:15)
[2017-12-19] MEDS: POLYETHYLENE GLYCOL 3350 17 GM PACKET. PO SCH (09:00)
[2017-12-19] MEDS ORDERED: LOSARTAN 25 MG TABLET. PO SCH (09:00)
[2017-12-19] MEDS: ASPIRIN ENTERIC COATED 81 MG TABLET.DR. PO SCH (09:19)
[2017-12-19] MEDS: LACTOBACILLUS RHAMNOSUS GG 1 CAPSULE. PO SCH ×2 (09:19→21:13)
[2017-12-19] MEDS: oxyCODONE ER 40 MG TAB.ER.12H PO SCH ×3 (09:20→21:14)
[2017-12-19] MEDS: LINAGLIPTIN 5 MG TABLET PO SCH (09:20)
[2017-12-19] MEDS: SPIRONOLACTONE 25 MG TABLET PO SCH (09:22)
[2017-12-19] MEDS: METOPROLOL SUCC 24HR ER 25 MG TAB.ER.24H. PO SCH (09:22)
[2017-12-19] MEDS: AMIODARONE HCL 200 MG TABLET PO SCH (09:23)
[2017-12-19] MEDS: DIGOXIN 125 MCG TABLET PO SCH (09:25)
--- NOTE | 2017-12-19 15:53 | HP ---
ADMIT DATE: HISTORY OF PRESENT ILLNESS: The patient is a 77-year-old female patient who was transferred from swing bed to ICU as she developed acute on chronic kidney injury and in consultation with the cardiology, decision was made to put her back on her milrinone drip. I spoke with Dr. Patricio Holden, her primary care physician. Apparently, her milrinone drip was discontinued by the banquet prep cook and ejection fraction has ____ to about 55%. However, before she was discharged, apparently her ejection fraction was dropped to something like 40-45%. While at swing bed, the patient basically continued to have severe intractable pain, was not really cooperating and despite increasing her OxyContin to 80 mg 3 times a day and oxycodone immediate release 30 mg every 4 hours, she continued to have severe intractable pain. I spoke with Dr. Mcclain and this diskitis and osteomyelitis are contraindication to any kyphoplasty or vertebroplasty. Therefore, the patient was transferred to ICU. We did start her back on her milrinone drip. We will continue obviously with her Zyvox, although I am a little bit concerned that her platelet count is dropping likely due to Zyvox. PAST MEDICAL HISTORY: Significant for congestive heart failure secondary to ischemic cardiomyopathy for which she has been on a milrinone drip through the [facility] congestive heart failure program for almost a year and a half now. She is known to have atrial fibrillation, coronary artery disease, hypertension, hyperlipidemia, chronic obstructive pulmonary disease, type 2 diabetes mellitus, osteoporosis with multiple compression fractures and severe intractable back pain leading to poor mobility. PAST SURGICAL HISTORY: Significant for coronary artery bypass graft surgery, left total hip arthroplasty, remote left nephrectomy and left thumb amputation. FAMILY HISTORY: Significant for hypertension. SOCIAL HISTORY: She lives at home with her girlfriend. She used to smoke half a pack a day, does not drink alcohol or use any recreational drugs. ALLERGIES: She has known drug allergies. MEDICATIONS: She is currently on following medications: She is on daptomycin 500 mg, ____ mg IV daily, ipratropium bromide and albuterol sulfate for DuoNeb 0.5/2.5 mg in 3 mL by nebulizer 4 times a day, carisoprodol for Soma 350 mg 4 times a day, amiodarone 200 mg once a day, digoxin 125 mcg once a day, atorvastatin calcium 40 mg at bedtime, metoprolol succinate 25 mg once a day, losartan potassium 25 mg once a day, spironolactone 25 mg once a day, aspirin 81 mg once a day, oxycodone immediate release 30 mg every ____ 80 mg 3 times a day, alprazolam 0.5 mg every 8 hours as needed, potassium chloride 20 mEq daily, potassium chloride 40 mEq daily, furosemide 80 mg twice a day, ondansetron 4 mg tablet every 6 hours, Lactobacillus rhamnosus 1 daily, sitagliptin for Januvia 50 mg daily. She is on NovoLog insulin by FlexPen 4 units before meals and Levemir FlexTouch 24 units at bedtime. She is on levothyroxine 75 mcg daily. REVIEW OF SYSTEMS: As per history of present illness. PHYSICAL EXAMINATION: GENERAL: When I examined her on arrival to the ICU, she looked pale, but not jaundiced, cyanosis, or thyromegaly. No jugular venous distention. No lower limb edema. VITAL SIGNS: Her heart rate was 94, blood pressure was 90/65, temperature was 98.7, respiratory rate was 26 and oxygen saturation was 99% on 2.5 liters of oxygen. HEAD, EYES, EARS, NOSE, AND THROAT: Normocephalic, atraumatic. NECK: Supple. HEART: Showed normal first and second heart sounds with no gallop, rub, or murmur. CHEST: Clear to auscultation. No crepitation or rhonchi. ABDOMEN: Distended, soft, nontender. No guarding or rigidity. No organomegaly. All hernial orifices intact. Bowel sounds normal. NEUROLOGIC: She was awake, alert, responding appropriately. All cranial nerves intact. She moves all extremities without difficulty, although she is mostly bed bound. LABORATORY DATA: Her lab work as of yesterday showed a white cell count 5400; hemoglobin 11.1; hematocrit was 33; MCV was 98, and platelet count was 66,000. Her chemistry showed a serum sodium 136, potassium 5, chloride 106, bicarbonate 23, anion gap of 7, BUN 43, creatinine 1.8, estimated GFR was 27 mL per minute. Her glucose 155, calcium was 7.9. Total bilirubin, AST, ALT were normal. Alkaline phosphatase was high at 384. Her total protein was 6.1, albumin was 1.5. Her prothrombin time was 13.5, INR 1.3. ASSESSMENT AND PLAN: 1. L2-L3 diskitis with severe intractable pain for which she is now on daptomycin. We discontinued Zyvox as she developed thrombocytopenia. 2. Intractable low back pain due to multiple compression fractures with L2-L3 diskitis for which she is now on OxyContin 80 mg 3 times a day and oxycodone immediate release 30 mg every 4 hours. 3. Thrombocytopenia, most likely due to Zyvox that was discontinued and she is now back on daptomycin. 4. Congestive heart failure due to ischemic cardiomyopathy. We will start her back on Primacor infusion. 5. Acute on chronic kidney injury. Her creatinine has risen from 1.3 to 1.8. 6. Hyperkalemia. 7. Other medical problems include chronic obstructive pulmonary disease, atrial fibrillation, rate controlled, well anticoagulated. We will repeat all her lab work tomorrow and decide on further management accordingly. ROYAL SMITH MD DR: CHARLY/juan JOB#: [id number] / [id number]
[2017-12-19] MEDS: ATORVASTATIN CALCIUM 20 MG TABLET PO SCH (21:13)
[2017-12-19] MEDS: INSULIN DETEMIR 300 UNITS/3 ML INSULN.PEN. SQ SCH (21:20)
[2017-12-20] VITALS (22 sets, daily range): BP systolic 74–134; BP diastolic 42–80
[2017-12-20] MEDS: oxyCODONE IR 5 MG TABLET PO PRN ×3 (00:04→19:43)
--- NOTE | 2017-12-20 01:45 | PN ---
DATE: 12/18/2017 SUBJECTIVE: The patient is resting, slightly propped up in her recliner, in no apparent distress. She stated that she is doing much better. She has worked with physical therapy and she managed apparently to stand and transfer to recliner. We did start her yesterday on Primacor drip and also we discontinued her Zyvox as she has thrombocytopenia and she was switched back to daptomycin. PHYSICAL EXAMINATION: GENERAL: When I examined her today, she looked well and was clearly in no apparent respiratory distress, pale, but no jaundice, cyanosis, or thyromegaly. No jugular venous distension. No lower limb edema. VITAL SIGNS: Her heart rate was 106, her blood pressure was 112/55, temperature was 98.7, respiratory rate was 16, and oxygen saturation was 100% on room oxygen. HEAD, EYES, EARS, NOSE AND THROAT: Showed normocephalic, atraumatic. NECK: Supple. HEART: Showed normal first and second heart sounds with no gallop, rub or murmur. CHEST: Clear to auscultation. No crepitation or rhonchi. ABDOMEN: Slightly distended, soft, nontender. No guarding or rigidity. No organomegaly. Hernial orifice is intact. Bowel sounds normal. NEUROLOGIC: She was awake, alert, responding appropriately. Cranial nerves are intact. She moves extremities without difficulty, although she is mostly bedbound, chair bound. Her intake over the last 24 hour was 700. Output was not recorded. LABORATORY DATA: Her lab work this morning showed a white cell count 6600, hemoglobin 11, hematocrit 33, MCV 100, and platelet count of 68,000. Her chemistry showed a serum sodium 135, potassium 5.3, chloride 105, bicarbonate 23, anion gap of 7, BUN 48, creatinine 1.7, estimated GFR was 29 mL per minute. Her glucose was 159, calcium was 8. Total bilirubin, AST, ALT were normal. Alkaline phosphatase was elevated. Total protein was 6.3, albumin was 1.5. ASSESSMENT: 1. Congestive heart failure secondary to ischemic cardiomyopathy, back on Primacor drip. 2. Fvsly-vy-inzklaw kidney injury likely due to decompensation, resolving. Her creatinine is down from 1.8-1.7. 3. L2-L3 diskitis, osteomyelitis for which she is now on daptomycin as she developed thrombocytopenia secondary to Zyvox. 4. Hypertension, in fact the blood pressure is borderline low. 5. Hyperlipidemia, placed on atorvastatin. 6. Atrial fibrillation, rate controlled, well anticoagulated. 7. Chronic obstructive pulmonary disease seemed to be clinically well compensated. 8. Thrombocytopenia, which is improving. Her platelet count was 66,000 today, up to 68,000 after we discontinued the Zyvox. 9. Hyperkalemia with serum potassium 5.3. She is on losartan, spironolactone, and potassium. PLAN: My plan is to discontinue the potassium. We will repeat her labs tomorrow morning. We will continue obviously with physical and occupational therapy. Continue with daptomycin. Continue with Primacor. ROYAL SMITH MD DR: CHARLY/juan JOB#: [id number] / [id number]
[2017-12-20] MEDS: CARISOPRODOL 350 MG TABLET PO PRN ×2 (02:35→21:35)
[2017-12-20] MEDS: LEVOTHYROXINE 75 MCG TABLET PO SCH (06:32)
[2017-12-20 06:40] LABS: HEMATOCRIT 30.4 % (36.0-47.0); HEMOGLOBIN 10.1 g/dL (12.0-15.5); RED BLOOD COUNT 3.08 x10^6/uL (3.50-5.40); RED CELL DISTRIBUTION WIDTH 16.4 % (11.5-14.5); WHITE BLOOD COUNT 5.9 x10^3/uL (4.0-11.0)
[2017-12-20 06:48] LABS: CALCIUM 8.2 mg/dL (8.5-10.1); CREATININE 1.7 mg/dL (0.6-1.0); GFR 29.1; MAGNESIUM 2.2 mg/dL (1.8-2.4)
[2017-12-20] MEDS: ASPIRIN ENTERIC COATED 81 MG TABLET.DR. PO SCH (07:51)
[2017-12-20] MEDS: POLYETHYLENE GLYCOL 3350 17 GM PACKET. PO SCH (07:51)
[2017-12-20] MEDS: LACTOBACILLUS RHAMNOSUS GG 1 CAPSULE. PO SCH ×2 (07:51→20:44)
[2017-12-20] MEDS: DIGOXIN 125 MCG TABLET PO SCH (07:51)
[2017-12-20] MEDS: PANTOPRAZOLE 40 MG TABLET. PO SCH (07:52)
[2017-12-20] MEDS: AMIODARONE HCL 200 MG TABLET PO SCH (07:52)
[2017-12-20] MEDS: oxyCODONE ER 40 MG TAB.ER.12H PO SCH ×3 (07:52→21:36)
[2017-12-20] MEDS: SPIRONOLACTONE 25 MG TABLET PO SCH (07:52)
[2017-12-20] MEDS: INSULIN ASPART 300 UNITS/3 ML INSULN.PEN SQ SCH ×3 (07:55→16:30)
[2017-12-20] MEDS: LINAGLIPTIN 5 MG TABLET PO SCH (07:58)
[2017-12-20] MEDS: METOPROLOL SUCC 24HR ER 25 MG TAB.ER.24H. PO SCH (09:00)
[2017-12-20] MEDS ORDERED: LACTULOSE 20 GM/30 ML SOLUTION. PO ONE (09:00)
[2017-12-20] MEDS ORDERED: SODIUM POLYSTYRENE SULFONATE 15 GM/60 ML ORAL.SUSP. PO ONE (09:00)
--- NOTE | 2017-12-20 10:34 | PDOC2 ---
CARDIAC CONSULT DATE OF CONSULT Date Of Consult DATE: 12/20/17 TIME: 10:34 REASON FOR CONSULT Reason for Consult chf HPI History of Present Illness This is a pleasant 77 yo female recently admitted to [facility] for complains of back pain. She was found to have new compression fractures and underwent injections for this. She additionally had culture of spinal fluid which was positive for resistant staph epi. She was transferred to snf for rehab and ongoing antibiotics. She has a history of chronic systolic heart failure stage IV for which she had been on chronic infusion of Milrinone. Echocardiogram on admission revealed normalized LV function and milrinone was discontinued. A limited echo was done 10 days later and revealed EF 45%. She was transferred to snf at [facility]. Her creatinine apparently increased over the last several days so she was transferred back to ICU at [facility] and her Primacor was resumed. Cr on admission to [facility] on 11/24/17 was 1.8, on arrival to [facility], 1.4 and peaked at 1.8 on the , primacor was resumed and today her Cr is 1.7. Today she denies any chest discomfort or dyspnea. She denies any palpitations. He blood pressure today is low on the primacor drip. PAST MEDICAL HISTORY Past Medical History Cardiovascular: AFIB, CAD, CHF, HTN, Hyperlipidemia, stage 4 cardiomyopathy recently on chronic milrinone infusion Pulmonary: COPD GI: Constipation, liver cirrhosis, cholelithiasis Endocrine: Diabetes (2) Renal: CKD Musculoskeletal: chronic low back pain with degenerative disk disease, compression fractures, moderate spinal stenosis and multilevel spondylosis, sacral insufficiency fractures PAST SURGICAL HISTORY Past Surgical History CABG, Total hip replacement (left), Other (lleft adrenalectomy and nephrectomy) FAMILY HISTORY Family History Hypertension SOCIAL HISTORY Social History Smoke: <1 pack per day ALCOHOL: none Drugs: None Lives: with Family CURRENT MEDICATIONS Current Medications Current Medications Milrinone Lactate/ Dextrose 100 ml @ 3 mls/hr CONT PRN PRN IV CHF Last administered on 12/18/17at 17:19; Start 12/18/17 at 17:00 Alprazolam (Xanax) 0.25 mg PRN Q8HRS PRN PO ANXIETY / AGITATION; Start at 17:00 Amiodarone HCl (Cordarone) 200 mg DAILY PO Last administered on 12/20/17at 07:52 ; Start 12/19/17 at 09:00 Aspirin (Aspirin Enteric Coated) 81 mg DAILY PO Last administered on 12/20/17 07:51; Start 12/19/17 at 09:00 Carisoprodol (Soma) 350 mg PRN QID PRN PO PAIN Last administered on 12/20/17 02:35; Start 12/18/17 at 17:00 Digoxin (Lanoxin) 62.5 mcg DAILY PO Last administered on 12/20/17 07:51; Start 12/19/17 at 09:00 Insulin Aspart (NovoLOG) 4 units TIDAC SQ Last administered on 12/20/17 07:55 ; Start 12/19/17 at 07:30 Insulin Detemir (Levemir) 24 units QHS SQ Last administered on 12/19/17 21:20 ; Start 12/18/17 at 21:00 Albuterol/ Ipratropium (Duoneb) 3 ml QID PRN NEB SHORTNESS OF BREATH; Start at 17:00 Levothyroxine Sodium (Synthroid) 75 mcg DAILY07 PO Last administered on 06:32; Start 12/19/17 at 07:00 Losartan Potassium (Cozaar) 25 mg DAILY PO Last administered on 12/19/17 09:23 ; Start 12/19/17 at 09:00; Stop 12/20/17 at 08:49; Status DC Metoprolol Succinate (Toprol Xl) 25 mg DAILY PO Last administered on 12/19/17 09:22; Start 12/19/17 at 09:00 Ondansetron HCl (Zofran Odt) 4 mg PRN Q6HRS PRN PO NAUSEA/VOMITING; Start 12/18 at 17:00 Spironolactone (Aldactone) 25 mg DAILY PO Last administered on 12/20/17 07:52 ; Start 12/19/17 at 09:00; Stop 12/20/17 at 08:49; Status DC Atorvastatin Calcium (Lipitor) 40 mg QHS PO Last administered on 12/19/17 21: 13; Start 12/18/17 at 21:00 Lactobacillus Rhamnosus (Culturelle) 1 cap BID PO Last administered on 07:51; Start 12/18/17 at 21:00 Potassium Chloride (Klor-Con) 20 meq DAILY16 PO Last administered on 12/18/17at 17:31; Start 12/18/17 at 16:00; Stop 12/19/17 at 11:17; Status DC Oxycodone HCl (OxyCONTIN) 80 mg TID PO Last administered on 12/20/17at 07:52; Start 12/18/17 at 21:00 Linezolid 300 ml @ 300 mls/hr Q12HR IV Last administered on 12/20/17at 07:54; Start 12/18/17 at 21:00 Polyethylene Glycol (miraLAX) 17 gm DAILY PO Last administered on 12/20/17at 07: 51; Start 12/19/17 at 09:00 Docusate Sodium (Colace) 100 mg PRN DAILY PRN PO CONSTIPATION; Start 12/18/17 at 17:00 Oxycodone HCl (Roxicodone) 30 mg PRN Q4HRS PRN PO PAIN Last administered on at 00:04; Start 12/18/17 at 17:00 Calcium Carbonate/ Glycine (Tums) 500 mg PRN Q6HRS PRN PO INDIGESTION; Start at 17:30 Linagliptin (Tradjenta) 5 mg DAILY PO Last administered on 12/20/17at 07:58; Start 12/19/17 at 09:00 Pantoprazole Sodium (Protonix) 40 mg DAILYAC PO Last administered on 12/20/17at 07:52; Start 12/19/17 at 07:30 Al Hydroxide/Mg Hydroxide (Mylanta Plus Xs) 30 ml PRN Q4HRS PRN PO DYSPEPSIA; Start 12/18/17 at 17:30 Potassium Chloride (Klor-Con) 40 meq DAILYWBKFT PO Last administered on at 08:17; Start 12/19/17 at 08:00; Stop 12/19/17 at 11:17; Status DC Sodium Polystyrene Sulfonate (Kayexalate) 15 gm 1X ONCE PO ; Start 12/20/17 at 09:00; Stop 12/20/17 at 09:03; Status DC Lactulose (Lactulose) 20 gm 1X ONCE PO ; Start 12/20/17 at 09:00; Stop at 09:03; Status DC Active Scripts Active Reported Aldactone (Spironolactone) 25 Mg Tablet 1 Tab PO DAILY Januvia (Sitagliptin Phosphate) 50 Mg Tablet 1 Tab PO DAILY Cozaar (Losartan Potassium) 25 Mg Tablet 25 Mg PO DAILY Lasix (Furosemide) 80 Mg Tablet 1 Tab PO BID Amiodarone Hcl 200 Mg Tablet 1 Tab PO DAILY Oxycodone Hcl Immed.release (Oxycodone HCl) 15 Mg Tablet 2 Tab PO QID PRN Oxycodone HCl ER (Oxycodone HCl) 80 Mg Tab.er.12h 80 Mg PO BID Potassium Chloride 10 Meq Tablet.er 40 Meq PO DAILY Potassium Chloride 10 Meq Tablet.er 20 Meq PO DAILY16 Ondansetron Odt (Ondansetron) 4 Mg Tab.rapdis 4 Mg PO PRN Q6HRS PRN Toprol Xl (Metoprolol Succinate) 25 Mg Tab.er.24h 1 Tab PO DAILY Levothyroxine Sodium 75 Mcg Tablet 1 Tab PO DAILY07 Culturelle (Lactobacillus Rhamnosus Gg) 1 Each Capsule 1 Each PO DAILY Levemir Flextouch (Insulin Detemir) 100 Unit/1 Ml Insuln.pen 24 Unit SQ QHS Novolog Flexpen (Insulin Aspart) 100 Unit/1 Ml Insuln.pen 4 Unit SQ TIDAC Digoxin 125 Mcg Tablet 0.5 Tab PO DAILY Cubicin (Daptomycin) 500 Mg Vial 310 Mg IV DAILY Soma (Carisoprodol) 350 Mg Tablet 1 Tab PO PRN QID PRN Lipitor (Atorvastatin Calcium) 40 Mg Tablet 1 Tab PO QHS Aspirin Ec (Aspirin) 81 Mg Tablet.dr 1 Tab PO DAILY Xanax (Alprazolam) 0.25 Mg Tablet 0.25 Mg PO PRN Q8HRS PRN Duoneb 0.5-3(2.5) Mg/3 Ml (Albuterol/Ipratropium) 3 Ml Ampul.neb 3 Ml NEB QID PRN Oxycodone Hcl 30 Mg Tablet 1 Tab PO QID PRN ALLERGIES Allergies: Coded Allergies: No Known Drug Allergies (Unverified , 12/10/17) ROS Review of Systems as per HPI or negative PHYSICAL EXAM General: Alert, Oriented X3, Cooperative, No acute distress HEENT: Atraumatic, EOMI Lungs: Clear to auscultation, Normal air movement Heart: Other (irregular rate and rhythm, no gallops) Abdomen: Normal bowel sounds, Soft, No tenderness Extremities: No edema, Normal pulses Neuro: Normal speech, Strength at 5/5 X4 ext Psych/Mental Status: Mental status NL, Mood NL VITALS Vital Signs Vital Signs Date Time Temp Pulse Resp B/P (MAP) Pulse Ox O2 Delivery O2 Flow Rate FiO2 12/20/17 10:10 97.8 82 18 78/60 (66) 99 Nasal Cannula 2.0 LABS LABS Laboratory Tests Test 12/18/17 16:38 12/18/17 21:09 12/19/17 05:05 12/19/17 07:27 Glucose (Fingerstick) 118 mg/dL (70-99) 144 mg/dL (70-99) 166 mg/dL (70-99) White Blood Count 6.6 x10^3/uL (4.0-11.0) Red Blood Count 3.33 x10^6/uL (3.50-5.40) Hemoglobin 11.0 g/dL (12.0-15.5) Hematocrit 33.3 % (36.0-47.0) Mean Corpuscular Volume 100 fL (79-100) Mean Corpuscular Hemoglobin 33 pg (25-35) Mean Corpuscular Hemoglobin Concent 33 g/dL (31-37) Red Cell Distribution Width 16.1 % (11.5-14.5) Platelet Count 68 x10^3/uL (140-400) Neutrophils (%) (Auto) 71 % (31-73) Lymphocytes (%) (Auto) 20 % (24-48) Monocytes (%) (Auto) 5 % (0-9) Eosinophils (%) (Auto) 3 % (0-3) Basophils (%) (Auto) 1 % (0-3) Neutrophils # (Auto) 4.7 x10^3uL (1.8-7.7) Lymphocytes # (Auto) 1.3 x10^3/uL (1.0-4.8) Monocytes # (Auto) 0.4 x10^3/uL (0.0-1.1) Eosinophils # (Auto) 0.2 x10^3/uL (0.0-0.7) Basophils # (Auto) 0.0 x10^3/uL (0.0-0.2) Sodium Level 135 mmol/L (136-145) Potassium Level 5.3 mmol/L (3.5-5.1) Chloride Level 105 mmol/L (98-107) Carbon Dioxide Level 23 mmol/L (21-32) Anion Gap 7 (6-14) Blood Urea Nitrogen 48 mg/dL (7-20) Creatinine 1.7 mg/dL (0.6-1.0) Estimated GFR (Cockcroft-Gault) 29.1 BUN/Creatinine Ratio 28 (6-20) Glucose Level 159 mg/dL (70-99) Calcium Level 8.0 mg/dL (8.5-10.1) Total Bilirubin 0.9 mg/dL (0.2-1.0) Aspartate Amino Transf (AST/SGOT) 54 U/L (15-37) Alanine Aminotransferase (ALT/SGPT) 54 U/L (14-59) Alkaline Phosphatase 366 U/L (46-116) Total Protein 6.3 g/dL (6.4-8.2) Albumin 1.5 g/dL (3.4-5.0) Albumin/Globulin Ratio 0.3 (1.0-1.7) Test 12/19/17 12:06 12/19/17 17:07 12/19/17 21:17 12/20/17 05:39 Glucose (Fingerstick) 205 mg/dL (70-99) 249 mg/dL (70-99) 150 mg/dL (70-99) White Blood Count 5.9 x10^3/uL (4.0-11.0) Red Blood Count 3.08 x10^6/uL (3.50-5.40) Hemoglobin 10.1 g/dL (12.0-15.5) Hematocrit 30.4 % (36.0-47.0) Mean Corpuscular Volume 99 fL (79-100) Mean Corpuscular Hemoglobin 33 pg (25-35) Mean Corpuscular Hemoglobin Concent 33 g/dL (31-37) Red Cell Distribution Width 16.4 % (11.5-14.5) Platelet Count 62 x10^3/uL (140-400) Sodium Level 135 mmol/L (136-145) Potassium Level 6.0 mmol/L (3.5-5.1) Chloride Level 105 mmol/L (98-107) Carbon Dioxide Level 27 mmol/L (21-32) Anion Gap 3 (6-14) Blood Urea Nitrogen 47 mg/dL (7-20) Creatinine 1.7 mg/dL (0.6-1.0) Estimated GFR (Cockcroft-Gault) 29.1 Glucose Level 126 mg/dL (70-99) Calcium Level 8.2 mg/dL (8.5-10.1) Magnesium Level 2.2 mg/dL (1.8-2.4) Test 12/20/17 08:08 Glucose (Fingerstick) 135 mg/dL (70-99) IMAGES IMAGES CXR - IMPRESSION: 1. Mild cardiomegaly. Small right pleural effusion. ECHOCARDIOGRAM Echocardiogram 12/09/17 Left ventricle systolic function is mildly reduced. EF 45% Septal motion suggestive of conduction defect. Mild global hypokinesis. Doppler and Color-flow revealed severe mitral regurgitation. 11/29/17 The left ventricle is normal size. The systolic function is at the lower limits of normal. The Ejection Fraction is estimated at 50%. There is borderline to mild concentric left ventricular hypertrophy. There is no significant aortic valvular stenosis. Doppler and Color Flow revealed trace aortic regurgitation. Doppler and Color-flow revealed moderate mitral regurgitation. Doppler and Color Flow revealed trace tricuspid regurgitation. WENCESLAO 06/29/16 Basal inferior wall hypokinesis. The ejection fraction is estimated at 55%. The left atrium is moderately dilated. Moderate mitral regurgitation. Mild tricuspid regurgitation. There is no evidence of significant pericardial effusion. STRESS TEST Stress Test 06/25/16 Conclusion 1. No evidence of stress induced EKG changes. 2. Normal myocardial perfusion at stress. 3. Motion artifact noted. 4. Low normal EF at 53% 5. Low risk study ASSESSMENT/PLAN Assessment/Plan 1. Chronic systolic heart failure secondary to ICM with mod- severe MR - most recent echos revealed EF 45-50%. She appears euvolemic at this time. Continue beta blockers 2. Chronic AFIB: rate controlled 3. CKD stage 3-4. -baseline Cr appears to be ~1.8 4. hypotension - 70's systolic on Primacor. 5. hyperkalemia - aldactone and potassium discontinued and receiving kayexalate 6. atrial fibrillation - ? chronic. Would consider discontinuing amiodarone. CHF appears to be clinically compensated at this time. EF 45-50% range. Repeat limited echo pending. Unable to determine current functional status as she has been essentially bed bound due to compression fractures and current infectious process. Primacor held due to hypotension. Await echo prior to further recommendations. Primacor indicated for class IV heart failure. JOSE DOWLING RE[employer]ERATION INSULATOR Dec 20, 2017 10:34
[2017-12-20] MEDS ORDERED: diphenhydrAMINE HCL 25 MG CAPSULE PO PRN (18:45)
[2017-12-20] MEDS: ATORVASTATIN CALCIUM 20 MG TABLET PO SCH (20:44)
[2017-12-20] MEDS: INSULIN DETEMIR 300 UNITS/3 ML INSULN.PEN. SQ SCH (22:10)
--- NOTE | 2017-12-20 23:34 | PN ---
DATE: SUBJECTIVE: The patient is resting slightly propped up in bed, in no apparent distress. She said that her pain is somewhat better; however, she did not sleep because of the bed. PHYSICAL EXAMINATION: GENERAL: When I examined her today, she looked pale, no jaundice, cyanosis, or thyromegaly. No jugular venous distension. No lower limb edema. VITAL SIGNS: Her heart rate was 100, blood pressure was 97/51, temperature was 98, respiratory rate was 16, and oxygen saturation was 97% on room air. HEAD, EYES, EARS, NOSE AND THROAT: Showed normocephalic, atraumatic. NECK: Supple. HEART: Showed normal first and second heart sounds with no gallop, rub or murmur. CHEST: Clear to auscultation. No crepitation or rhonchi. ABDOMEN: Distended, soft, nontender. No guarding or rigidity. No organomegaly. Hernial orifice intact. Bowel sounds normal. NEUROLOGIC: She was awake, alert, responding appropriately. All cranial nerves intact. She moves her extremities without difficulty. She is mostly bedbound, chair bound. INTAKE AND OUTPUT: Her intake over the last 24 hours was 700, no output was recorded. LABORATORY DATA: As of this morning, her serum sodium was 135, potassium 6, chloride 105, bicarbonate 27, anion gap of 3, BUN 47, creatinine 1.7, estimated GFR was 29 mL per minute, her glucose was 126, calcium was 8.2, and magnesium 2.2. Her white cell count was 5900, hemoglobin 10, hematocrit 30, MCV 99, and platelet count of 62,000. ASSESSMENT: 1. Congestive heart failure secondary to ischemic cardiomyopathy, back on Primacor drip. 2. Acute on chronic kidney injury, likely ____, resolving. Her creatinine is down from 1.8 to 1.7. 3. L2-L3 diskitis, osteomyelitis for which she continues to be on Zyvox. Unfortunately, her platelet count is trending downward. 4. Hypertension. In fact, her blood pressure is borderline low and she is off Lasix, spironolactone, metoprolol and losartan. 5. Hyperlipidemia. Continued to be on atorvastatin. 6. Atrial fibrillation, rate controlled. 7. Chronic obstructive pulmonary disease, seems to be clinically well compensated. 8. Thrombocytopenia. The platelet count this morning is down to 62,000. 9. Hyperkalemia, serum potassium is 6, for which we held her losartan, spironolactone and potassium. She will be given Kayexalate 15 grams and 30 mL of lactulose. PLAN: Obviously to discontinue losartan and spironolactone. Continue with physical and occupational therapy. Continue with IV antibiotic. I will contact Dr. Guillermo and see if we need to switch her back to daptomycin given that she is on Zyvox and platelet counts are trending down. We will continue obviously with Primacor. ROYAL SMITH MD DR: CHARLY/juan JOB#: [id number] / [id number]
[2017-12-21] VITALS (9 sets, daily range): BP systolic 93–154; BP diastolic 43–75
[2017-12-21 06:24] LABS: CALCIUM 8.1 mg/dL (8.5-10.1); CREATININE 1.6 mg/dL (0.6-1.0); GFR 31.3; POTASSIUM 5.9 mmol/L (3.5-5.1)
[2017-12-21 06:28] LABS: DIG 0.9 ng/dL (0.9-2.0)
[2017-12-21] MEDS: METOPROLOL SUCC 24HR ER 25 MG TAB.ER.24H. PO SCH (07:29)
[2017-12-21] MEDS ORDERED: SODIUM POLYSTYRENE SULFONATE 15 GM/60 ML ORAL.SUSP. PO ONE (07:30)
[2017-12-21] MEDS: INSULIN ASPART 300 UNITS/3 ML INSULN.PEN SQ SCH ×2 (07:30→11:30)
[2017-12-21] MEDS: PANTOPRAZOLE 40 MG TABLET. PO SCH (07:37)
[2017-12-21] MEDS: LEVOTHYROXINE 75 MCG TABLET PO SCH (07:37)
[2017-12-21] MEDS: LACTOBACILLUS RHAMNOSUS GG 1 CAPSULE. PO SCH (07:38)
[2017-12-21] MEDS: AMIODARONE HCL 200 MG TABLET PO SCH (07:38)
[2017-12-21] MEDS: LINAGLIPTIN 5 MG TABLET PO SCH (07:39)
[2017-12-21] MEDS: oxyCODONE ER 40 MG TAB.ER.12H PO SCH ×2 (07:39→12:46)
[2017-12-21] MEDS: ASPIRIN ENTERIC COATED 81 MG TABLET.DR. PO SCH (07:39)
[2017-12-21] MEDS: POLYETHYLENE GLYCOL 3350 17 GM PACKET. PO SCH (07:41)
[2017-12-21] MEDS: DIGOXIN 125 MCG TABLET PO SCH (07:41)
--- NOTE | 2017-12-21 08:48 | PDOC ---
PROGRESS NOTES Assessment 1. Chronic systolic heart failure secondary to ICM with mod- severe MR - Continue beta edith, no overt failure at this time. Doing well off Primacor, pressures remain low but improved. No ACEI/ARB secondary to hyperkalemia. EF improved to 50% by echo. 2. Chronic AFIB: rate controlled on amiodarone and digoxin. 3. CKD stage 3-4. -baseline Cr appears to be ~1.8 4. hypotension - 70's systolic on Primacor, improved to 90s off primacor. Likely still mildly hypotensive due to opiate analgesics. 5. hyperkalemia - aldactone and potassium discontinued, received kayelalate. Mgmt per PCP. Problems: Subjective no dyspnea, chest pain or palpitations. Objective Vital Signs Date Time Temp Pulse Resp B/P (MAP) Pulse Ox O2 Delivery O2 Flow Rate FiO2 12/21/17 08:18 Room Air 12/21/17 07:41 96 12/21/17 07:29 94/86 12/21/17 07:00 98.1 20 98 12/21/17 03:00 2.0 Intake and Output 12/21/17 07:00 Intake Total 2200 ml Balance 2200 ml Intake Oral 1500 ml IV Total 700 ml # Voids 7 # Bowel Movements 1 Abdomen: Normal bowel sounds, Soft Heart: Normal S1, Normal S2, Other (irregular rate and rhythm) Extremities: No cyanosis General: Alert, Oriented X3, Cooperative, No acute distress Lungs: Clear to auscultation Psych/Mental Status: Mental status NL Review of Relevant I have reviewed the following items asim (where applicable) has been applied. Labs Laboratory Tests Test 12/19/17 12:06 12/19/17 17:07 12/19/17 21:17 12/20/17 05:39 Glucose (Fingerstick) 205 mg/dL (70-99) 249 mg/dL (70-99) 150 mg/dL (70-99) White Blood Count 5.9 x10^3/uL (4.0-11.0) Red Blood Count 3.08 x10^6/uL (3.50-5.40) Hemoglobin 10.1 g/dL (12.0-15.5) Hematocrit 30.4 % (36.0-47.0) Mean Corpuscular Volume 99 fL (79-100) Mean Corpuscular Hemoglobin 33 pg (25-35) Mean Corpuscular Hemoglobin Concent 33 g/dL (31-37) Red Cell Distribution Width 16.4 % (11.5-14.5) Platelet Count 62 x10^3/uL (140-400) Sodium Level 135 mmol/L (136-145) Potassium Level 6.0 mmol/L (3.5-5.1) Chloride Level 105 mmol/L (98-107) Carbon Dioxide Level 27 mmol/L (21-32) Anion Gap 3 (6-14) Blood Urea Nitrogen 47 mg/dL (7-20) Creatinine 1.7 mg/dL (0.6-1.0) Estimated GFR (Cockcroft-Gault) 29.1 Glucose Level 126 mg/dL (70-99) Calcium Level 8.2 mg/dL (8.5-10.1) Magnesium Level 2.2 mg/dL (1.8-2.4) Test 12/20/17 08:08 12/20/17 11:23 12/20/17 16:10 12/20/17 20:22 Glucose (Fingerstick) 135 mg/dL (70-99) 160 mg/dL (70-99) 150 mg/dL (70-99) 164 mg/dL (70-99) Test 12/21/17 05:45 12/21/17 07:20 Sodium Level 134 mmol/L (136-145) Potassium Level 5.9 mmol/L (3.5-5.1) Chloride Level 105 mmol/L (98-107) Carbon Dioxide Level 27 mmol/L (21-32) Anion Gap 2 (6-14) Blood Urea Nitrogen 47 mg/dL (7-20) Creatinine 1.6 mg/dL (0.6-1.0) Estimated GFR (Cockcroft-Gault) 31.3 Glucose Level 72 mg/dL (70-99) Calcium Level 8.1 mg/dL (8.5-10.1) Digoxin Level 0.9 ng/dL (0.9-2.0) Digoxin Last Dose Date 12/20/2017 Digoxin Last Dose Time 0900 Glucose (Fingerstick) 85 mg/dL (70-99) Medications Current Medications Milrinone Lactate/ Dextrose 100 ml @ 3 mls/hr CONT PRN PRN IV CHF Last administered on 12/18/17 17:19; Start 12/18/17 at 17:00 Alprazolam (Xanax) 0.25 mg PRN Q8HRS PRN PO ANXIETY / AGITATION; Start at 17:00 Amiodarone HCl (Cordarone) 200 mg DAILY PO Last administered on 12/21/17 07:38 ; Start 12/19/17 at 09:00 Aspirin (Aspirin Enteric Coated) 81 mg DAILY PO Last administered on 12/21/17 07:39; Start 12/19/17 at 09:00 Carisoprodol (Soma) 350 mg PRN QID PRN PO PAIN Last administered on 12/20/17 21:35; Start 12/18/17 at 17:00 Digoxin (Lanoxin) 62.5 mcg DAILY PO Last administered on 12/21/17 07:41; Start 12/19/17 at 09:00 Insulin Aspart (NovoLOG) 4 units TIDAC SQ Last administered on 12/20/17 07:55 ; Start 12/19/17 at 07:30 Insulin Detemir (Levemir) 24 units QHS SQ Last administered on 12/20/17 22:10 ; Start 12/18/17 at 21:00 Albuterol/ Ipratropium (Duoneb) 3 ml QID PRN NEB SHORTNESS OF BREATH; Start at 17:00 Levothyroxine Sodium (Synthroid) 75 mcg DAILY07 PO Last administered on 07:37; Start 12/19/17 at 07:00 Losartan Potassium (Cozaar) 25 mg DAILY PO Last administered on 12/19/17 09:23 ; Start 12/19/17 at 09:00; Stop 12/20/17 at 08:49; Status DC Metoprolol Succinate (Toprol Xl) 25 mg DAILY PO Last administered on 12/19/17 09:22; Start 12/19/17 at 09:00 Ondansetron HCl (Zofran Odt) 4 mg PRN Q6HRS PRN PO NAUSEA/VOMITING Last administered on 12/20/17 19:42; Start 12/18/17 at 17:00 Spironolactone (Aldactone) 25 mg DAILY PO Last administered on 4/16/18at 07:52 ; Start 12/19/17 at 09:00; Stop 12/20/17 at 08:49; Status DC Atorvastatin Calcium (Lipitor) 40 mg QHS PO Last administered on 12/20/17at 20: 44; Start 12/18/17 at 21:00 Lactobacillus Rhamnosus (Culturelle) 1 cap BID PO Last administered on at 07:38; Start 12/18/17 at 21:00 Potassium Chloride (Klor-Con) 20 meq DAILY16 PO Last administered on 12/18/17at 17:31; Start 12/18/17 at 16:00; Stop 12/19/17 at 11:17; Status DC Oxycodone HCl (OxyCONTIN) 80 mg TID PO Last administered on 12/21/17 07:39; Start 12/18/17 at 21:00 Linezolid 300 ml @ 300 mls/hr Q12HR IV Last administered on 12/21/17 07:42; Start 12/18/17 at 21:00 Polyethylene Glycol (miraLAX) 17 gm DAILY PO Last administered on 12/21/17at 07: 41; Start 12/19/17 at 09:00 Docusate Sodium (Colace) 100 mg PRN DAILY PRN PO CONSTIPATION; Start 12/18/17 at 17:00 Oxycodone HCl (Roxicodone) 30 mg PRN Q4HRS PRN PO PAIN Last administered on at 19:43; Start 12/18/17 at 17:00 Calcium Carbonate/ Glycine (Tums) 500 mg PRN Q6HRS PRN PO INDIGESTION; Start at 17:30 Linagliptin (Tradjenta) 5 mg DAILY PO Last administered on 12/21/17at 07:39; Start 12/19/17 at 09:00 Pantoprazole Sodium (Protonix) 40 mg DAILYAC PO Last administered on 12/21/17at 07:37; Start 12/19/17 at 07:30 Al Hydroxide/Mg Hydroxide (Mylanta Plus Xs) 30 ml PRN Q4HRS PRN PO DYSPEPSIA; Start 12/18/17 at 17:30 Potassium Chloride (Klor-Con) 40 meq DAILYWBKFT PO Last administered on at 08:17; Start 12/19/17 at 08:00; Stop 12/19/17 at 11:17; Status DC Sodium Polystyrene Sulfonate (Kayexalate) 15 gm 1X ONCE PO Last administered on 12/20/17at 11:38; Start 12/20/17 at 09:00; Stop 12/20/17 at 09:03; Status DC Lactulose (Lactulose) 20 gm 1X ONCE PO Last administered on 12/20/17at 11:38; Start 12/20/17 at 09:00; Stop 12/20/17 at 09:03; Status DC Diphenhydramine HCl (Benadryl) 25 mg PRN Q6HRS PRN PO ITCHING; Start 12/20/17 at 18:45 Sodium Polystyrene Sulfonate (Kayexalate) 15 gm 1X ONCE PO Last administered on 12/21/17at 07:37; Start 12/21/17 at 07:30; Stop 12/21/17 at 07:31; Status DC Active Scripts Active Reported Aldactone (Spironolactone) 25 Mg Tablet 1 Tab PO DAILY Januvia (Sitagliptin Phosphate) 50 Mg Tablet 1 Tab PO DAILY Cozaar (Losartan Potassium) 25 Mg Tablet 25 Mg PO DAILY Lasix (Furosemide) 80 Mg Tablet 1 Tab PO BID Amiodarone Hcl 200 Mg Tablet 1 Tab PO DAILY Oxycodone Hcl Immed.release (Oxycodone HCl) 15 Mg Tablet 2 Tab PO QID PRN Oxycodone HCl ER (Oxycodone HCl) 80 Mg Tab.er.12h 80 Mg PO BID Potassium Chloride 10 Meq Tablet.er 40 Meq PO DAILY Potassium Chloride 10 Meq Tablet.er 20 Meq PO DAILY16 Ondansetron Odt (Ondansetron) 4 Mg Tab.rapdis 4 Mg PO PRN Q6HRS PRN Toprol Xl (Metoprolol Succinate) 25 Mg Tab.er.24h 1 Tab PO DAILY Levothyroxine Sodium 75 Mcg Tablet 1 Tab PO DAILY07 Culturelle (Lactobacillus Rhamnosus Gg) 1 Each Capsule 1 Each PO DAILY Levemir Flextouch (Insulin Detemir) 100 Unit/1 Ml Insuln.pen 24 Unit SQ QHS Novolog Flexpen (Insulin Aspart) 100 Unit/1 Ml Insuln.pen 4 Unit SQ TIDAC Digoxin 125 Mcg Tablet 0.5 Tab PO DAILY Cubicin (Daptomycin) 500 Mg Vial 310 Mg IV DAILY Soma (Carisoprodol) 350 Mg Tablet 1 Tab PO PRN QID PRN Lipitor (Atorvastatin Calcium) 40 Mg Tablet 1 Tab PO QHS Aspirin Ec (Aspirin) 81 Mg Tablet.dr 1 Tab PO DAILY Xanax (Alprazolam) 0.25 Mg Tablet 0.25 Mg PO PRN Q8HRS PRN Duoneb 0.5-3(2.5) Mg/3 Ml (Albuterol/Ipratropium) 3 Ml Ampul.neb 3 Ml NEB QID PRN Oxycodone Hcl 30 Mg Tablet 1 Tab PO QID PRN Vitals/I & O Vital Sign - Last 24 Hours 12/20/17 12/20/17 12/20/17 12/20/17 10:10 11:00 11:14 11:35 Temp 97.8 Pulse 82 94 94 Resp 18 18 18 B/P (MAP) 78/60 (66) 127/56 (79) 83/64 (70) Pulse Ox 99 97 97 O2 Delivery Nasal Cannula Nasal Cannula Room Air Room Air O2 Flow Rate 2.0 2.5 12/20/17 12/20/17 12/20/17 12/20/17 11:40 12:10 14:17 14:20 Pulse 94 87 Resp 18 B/P (MAP) 74/44 (54) 100/42 (61) Pulse Ox 97 98 O2 Delivery Room Air Room Air Room Air Room Air 12/20/17 12/20/17 12/20/17 12/20/17 14:39 16:00 16:22 17:17 Temp 97.5 Pulse 76 82 97 Resp 18 16 16 B/P (MAP) 107/45 (65) 106/59 (75) 122/80 (94) Pulse Ox 98 99 99 O2 Delivery Room Air Nasal Cannula Room Air Room Air O2 Flow Rate 2.5 12/20/17 12/20/17 12/20/17 12/20/17 18:31 18:44 19:00 19:43 Temp 98.3 Pulse 79 107 94 Resp 16 16 18 20 B/P (MAP) 121/54 (76) 124/62 (82) 134/60 (84) Pulse Ox 98 98 100 97 O2 Delivery Room Air Room Air Room Air Room Air 412/20/17 12/20/17 12/20/17 20:00 20:00 20:44 21:00 Pulse 90 90 Resp 16 18 15 B/P (MAP) 119/51 (73) 113/50 (71) Pulse Ox 98 98 99 O2 Delivery Room Air Room Air Room Air Room Air 12/20/17 12/20/17 12/20/17 12/21/17 21:36 22:00 23:00 01:00 Pulse 88 86 86 Resp 22 18 B/P (MAP) 112/53 (72) 110/46 (67) 98/43 (61) Pulse Ox 99 100 100 97 O2 Delivery Room Air Room Air Room Air Room Air 12/21/17 12/21/17 12/21/17 12/21/17 01:36 02:00 03:00 05:00 Temp 97.6 Pulse 84 84 75 Resp 16 18 20 B/P (MAP) 104/47 (66) 101/59 (73) 93/55 (68) Pulse Ox 100 99 99 O2 Delivery Room Air Nasal Cannula Nasal Cannula Room Air O2 Flow Rate 2.0 2.0 12/21/17 12/21/17 12/21/17 12/21/17 07:00 07:29 07:38 07:41 Temp 98.1 Pulse 98 87 83 96 Resp 20 B/P (MAP) 104/50 (68) 94/86 Pulse Ox 98 O2 Delivery Room Air 12/21/17 08:18 O2 Delivery Room Air Intake and Output 12/20/17 12/20/17 12/21/17 15:00 23:00 07:00 Intake Total 880 ml 1080 ml 240 ml Balance 880 ml 1080 ml 240 ml JOSE DOWLING APRN Dec 21, 2017 08:48
[2017-12-21] MEDS: oxyCODONE IR 5 MG TABLET PO PRN (09:30)
--- NOTE | 2017-12-21 14:09 | CARD ---
MR#: [id number] Account#: Date of Study: 12/21/2017 Ordering Physician: Katty: ALAN Trejo APPROVED REPORT EXAM: LIMITED Two-dimensional and M-mode echocardiogram. Other Information Quality : GoodHR: 85bpm INDICATION LV Function:Systolic 2D DIMENSIONS RVDd3.4 (2.9-3.5cm)IVSd1.6 (0.7-1.1cm) LVDd4.2 (3.9-5.9cm)PWd1.8 (0.7-1.1cm) LVDs3.1 (2.5-4.0cm)FS (%) 24.8 % SV38.6 mlLVEF(%)49.5 (>50%) LEFT VENTRICLE The left ventricle is normal size. There is moderate concentric left ventricular hypertrophy. Proxima l septal thickening is noted. Left ventricle ejection fraction is low normal. The Ejection Fraction i s 50% Septal motion suggestive of conduction defect. 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 RIGHT VENTRICLE The right ventricle is normal size. The right ventricular systolic function is normal. ATRIA The left atrium is mildly dilated. The right atrium size is normal. AORTIC VALVE The aortic valve is calcified and displays decreased opening. MITRAL VALVE The mitral valve is moderately thickened. GREAT VESSELS Moderate aortic root calcification. PERICARDIAL EFFUSION There is no evidence of significant pericardial effusion. Critical Notification Critical Value: No <Conclusion> Septal motion suggestive of conduction defect. 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 Left ventricle ejection fraction is low normal. The Ejection Fraction is 50% The aortic valve is calcified and displays decreased opening. Signed by : Thomas Her, Electronically Approved : 12/21/2017 11:25:25
--- NOTE | 2017-12-21 19:31 | DS ---
DATE OF DISCHARGE: 12/21/2017 HOSPITAL COURSE: The patient is a 77-year-old female patient who was diagnosed with L2-L3 diskitis, osteomyelitis at [facility], and she was discharged to swing bed at [facility] to continue the IV antibiotic in the form of daptomycin that was subsequently switched to Zyvox and to start the process of physical and occupational therapy. Unfortunately, her pain was intractable and despite increasing her oxycodone and OxyContin, she continued to have severe intractable pain and was not participating with physical therapy. She is also known to have chronic systolic congestive heart failure due to ischemic cardiomyopathy for which she was on Primacor through [facility] program for the last qmn-cpu-f-half year, and the Primacor was discontinued while at [facility] as her ejection fraction was 55% that has dropped since then to about 45% and while she is in swing bed, her kidney function also worsened. The creatinine has risen from 1.3 to 1.8 and therefore, a decision was made to transfer her to the ICU at [facility], start her on her Primacor drip. Continue with IV Zyvox. Continue with pain management and it was felt that she would benefit from admission to a long-term acute care at [place], [place]. PHYSICAL EXAMINATION: GENERAL: When I saw her today, she looked well and was clearly in no apparent respiratory distress. She was somewhat pale, but no jaundice, cyanosis, or thyromegaly. No jugular venous distension. No lower limb edema. VITAL SIGNS: Her heart rate was 108, her blood pressure was 107/46, respiratory rate was 20, and oxygen saturation was 98% on room air. HEAD, EYES, EARS, NOSE AND THROAT: Normocephalic, atraumatic. NECK: Supple. HEART: Showed no first and second heart sounds with no gallop, rub or murmur. CHEST: Clear to auscultation. No wheezes or rhonchi. ABDOMEN: Distended, soft, and nontender. No guarding or rigidity. No organomegaly. Hernial orifice intact. Bowel sounds normal. NEUROLOGIC: She is awake, alert, oriented to time, place and person. Cranial nerves intact. She moves extremities without difficulty. She is mostly bedbound and chair bound. Her intake was 1884 and no output was recorded. LABORATORY DATA: As of this morning, her white cell count was 5900, hemoglobin 10, hematocrit 30, MCV 99, and platelet count of 62,000. Her serum sodium was 134, potassium 5.9, chloride 105, bicarbonate 27, anion gap of 2, BUN 47, creatinine was 1.6, estimated GFR was 31 mL per minute. Her glucose was 72, calcium was 8.1. DISCHARGE MEDICATIONS: She will be discharged to [facility] to continue on diphenhydramine 25 mg every 6 hours, linagliptin 5 mg daily, polyethylene glycol 17 g daily, metoprolol succinate 25 mg once a day, digoxin 62.5 mcg once a day, aspirin 81 mg once a day, amiodarone 200 mg daily, Protonix 40 mg daily. She is on NovoLog insulin 4 units before meals and levothyroxine 75 mcg once a day. Her Zyvox will be switched to daptomycin 310 mg IV daily, Lactobacillus rhamnosus 1 capsule twice a day, atorvastatin 40 mg at bedtime. She is on detemir insulin 24 units at bedtime. She is on Mylanta 30 mL every 4 hours as needed, calcium carbonate 500 mg every 6 hours, oxycodone immediate release 30 mg every 4 hours, Colace 100 mg daily p.r.n. for constipation, ondansetron 4 mg every 6 hours as needed for nausea and vomiting. She is on albuterol sulfate, ipratropium bromide 3 mL 4 times a day, Soma 350 mg 4 times a day, alprazolam 0.5 mg every 8 hours as needed for anxiety. She is on milrinone drip. She is also on OxyContin 80 mg 3 times a day. FINAL DISCHARGE DIAGNOSES: 1. Congestive heart failure secondary to ischemic cardiomyopathy, on Pulmicort drip. 2. Acute on chronic kidney injury likely due to cardiac decompensation, resolving. Her creatinine is down from 1.3 to 1.6. 3. L2-L3 diskitis, osteomyelitis for which she was on Zyvox and unfortunately, her platelet count is trending downward and she is now switched to daptomycin. 4. Hypertension, in fact blood pressure is borderline. She of on Lasix, spironolactone, metoprolol, and losartan. 5. Hyperlipidemia for which she is on atorvastatin. 6. Atrial fibrillation, rate controlled. 7. Chronic obstructive pulmonary disease seems to be clinically well compensated. 8. Thrombocytopenia trending down, her most recent platelet count is down to 62,000. 9. Hyperkalemia with serum potassium of 5.9 mEq per liter. ROYAL SMITH MD DR: CHARLY/juan JOB#: [id number] / [id number]
== END 2017-12-21 15:20 | DRG 682 ==
LOC: ICU 16:06
PROVIDERS: ADMIT Internal Medicine; ATTEND Internal Medicine
DX: N17.9 Acute kidney failure, unspecified (principal); E43 Unspecified severe protein-calorie malnutrition; E11.69 Type 2 diabetes mellitus with other specified complication; D69.59 Other secondary thrombocytopenia; E11.22 Type 2 diabetes mellitus with diabetic chronic kidney disease; E87.5 Hyperkalemia; I95.9 Hypotension, unspecified; I50.22 Chronic systolic (congestive) heart failure; I13.0 Hypertensive heart and chronic kidney disease with heart failure and stage 1 through stage 4 chronic kidney disease, or unspecified chronic kidney disease; M46.26 Osteomyelitis of vertebra, lumbar region; M46.46 Discitis, unspecified, lumbar region; N18.4 Chronic kidney disease, stage 4 (severe); I25.5 Ischemic cardiomyopathy; E78.5 Hyperlipidemia, unspecified; F17.210 Nicotine dependence, cigarettes, uncomplicated; I25.10 Atherosclerotic heart disease of native coronary artery without angina pectoris; I48.2 Chronic atrial fibrillation; J44.9 Chronic obstructive pulmonary disease, unspecified; K74.60 Unspecified cirrhosis of liver; M81.0 Age-related osteoporosis without current pathological fracture; F41.9 Anxiety disorder, unspecified; G89.29 Other chronic pain; Z96.642 Presence of left artificial hip joint; Z82.49 Family history of ischemic heart disease and other diseases of the circulatory system; Z90.5 Acquired absence of kidney; Z95.1 Presence of aortocoronary bypass graft; Z87.81 Personal history of (healed) traumatic fracture; Z68.32 Body mass index [BMI] 32.0-32.9, adult; Z89.012 Acquired absence of left thumb; Z74.01 Bed confinement status; Z79.4 Long term (current) use of insulin
CPT/HCPCS: 36415; 80048; 80053; 80162; 82947; 83735; 85025; 85027; 87641; 93308; J2020; J2260; Q0162; 97110; 97116; 97530